=== PATIENT | female | born 1950 | race Caucasian/White ===

== ENCOUNTER → 2020-07-25 | Outpatient (CLI) | payer MEDICARE, BC ==
[2020-07-25 10:34] LABS: ALBUMIN 3.6 g/dL (3.4-5.0); CALCIUM 8.7 mg/dL (8.5-10.1); CREATININE 0.9 mg/dL (0.6-1.0); GFR 62.5; POTASSIUM 4.1 mmol/L (3.5-5.1)
[2020-07-25 10:40] LABS: BASO % 1 % (0-3); EOS # 0.2 x10^3/uL (0.0-0.7); EOS % 3 % (0-3); HEMOGLOBIN 14.3 g/dL (12.0-15.5); LYMPH % 20 % (24-48); MEAN CORPUSCULAR HEMOGLOBIN 34 pg (25-35); MEAN CORPUSCULAR HGB CONC 33 g/dL (31-37); MEAN CORPUSCULAR VOLUME 101 fL (79-100); MONO # 0.4 x10^3/uL (0.0-1.1); MONO % 8 % (0-9); NEUT # 3.5 x10^3/uL (1.8-7.7); NEUT % 68 % (31-73); PLATELET COUNT 186 x10^3/uL (140-400); RED BLOOD COUNT 4.26 x10^6/uL (3.50-5.40); RED CELL DISTRIBUTION WIDTH 13.8 % (11.5-14.5); WHITE BLOOD COUNT 5.1 x10^3/uL (4.0-11.0)
--- NOTE | 2020-07-25 12:46 | EKG ---
[facility] [address] [place] [address] Test Date: 2020-07-25 Test Time: 12:32:19 Pat Name: SHERIF VORA Department: Room: Gender: F [employer]: : 1950 Requested By: ANDRE ABBASI Order Number: [id number] Reading MD: Jason Mtz MD Measurements Intervals [place] Rate: 55 P: 37 WV: 156 QRS: -19 QRSD: 94 T: 41 QT: 450 QTc: 433 Interpretive Statements SINUS RHYTHM Electronically Signed On 07-25-2020 15:49:07 CDT by Jason Mtz MD
--- NOTE | 2020-07-25 13:10 | RAD ---
EXAM: Chest, 2 views. HISTORY: Elevated BMI. Preoperative evaluation. COMPARISON: None. FINDINGS: 2 views of the chest are obtained. There is no infiltrate, pleural fusion or pneumothorax. The heart is normal in size. IMPRESSION: No acute pulmonary finding. Electronically signed by: Lacie Max MD (07/25/2020 1:08 PM) [id number]
[2020-07-26 00:09] LABS: HEMOGLOBIN A1C 5.3 % (4.8-5.6)
== END ==
LOC: SURGPAT 12:25
PROVIDERS: ATTEND Orthopaedic Surgery
DX: Z01.812 Encounter for preprocedural laboratory examination (principal); M17.12 Unilateral primary osteoarthritis, left knee; Z96.652 Presence of left artificial knee joint
CPT/HCPCS: 36415; 71046; 80048; 82040; 82306; 83036; 85025; 85610; 85651; 87641; 93005

== ENCOUNTER 2020-08-15 06:06 | Inpatient (IN) | payer MEDICARE, BC ==
[2020-08-12 08:49] VITALS: BP 109/79
[~2020-08-15] VITALS: Ht 167.6 cm; Wt 92.2 kg
[2020-08-15] VITALS (9 sets, daily range): BP systolic 87–123; BP diastolic 51–77
[~2020-08-15 06:06] MED LIST: ACET325T21 PO; ACETAMINOPHEN 500 MG TABLET PO PRN; CELECOXIB 100 MG CAPSULE. PO PRN; DICL100G54 TP; ESCITALOPRAM OX10 MG PO; FURO40TA4 PO; SOLI10TA2 PO; TRANEXAMIC ACID 1,000 MG in IV NS 50ML -- 1ST BAG INJ ONE; TV=100ml MORPHINE 5 MG, KETOROLAC 30 MG, ROPIVacaine 0.5% PF 60 ML, EPINEPH... INT ART ONE
[2020-08-15] MEDS ORDERED: LIDOCAINE 2% PF 5 ML VIAL. ONE (06:18)
[2020-08-15] MEDS ORDERED: PROPOFOL 10 MG/ML (20ML) VIAL. IV ONE (06:18)
[2020-08-15] MEDS ORDERED: ACET325T21 PO (06:46)
[2020-08-15] MEDS ORDERED: FERR325T14 PO (06:47)
[2020-08-15] MEDS ORDERED: IV RINGERS,LACTATED 1000ML 1,000 ML IV SCH ×2 (07:00→07:30)
[2020-08-15] MEDS ORDERED: TOBRAMYCIN POWDER 1.2 GM VIAL. ONE (07:05)
[2020-08-15] MEDS ORDERED: VANCOMYCIN 1 GM VIAL. ONE ×2 (07:05)
[2020-08-15] MEDS ORDERED: TRANEXAMIC ACID in NS IVPB 100 ML ONE (07:17)
--- NOTE | 2020-08-15 07:24 | PDOC1 ---
History and Physical Date of Admission Date of Admission DATE: 08/15/20 TIME: 07:13 Identification/Chief Complaint Chief Complaint Left knee osteoarthritis pain Source Source: Chart review, Patient History of Present Illness History of Present Illness This 69-year-old woman has left knee osteoarthritis, and has previously tried nonoperative treatment.She describes a progression of knee pain since her last visit that has markedly progressed. Patient believes she's ready for knee replacement given how bad her pain is. She is unable to sleep or sit in her recliner for very long and has been taking Tylenol Arthritis every 2 hours. She is scheduled to have her lap-band removed. History of multiple bilateral superficial blood clots but no DVT. Denies any known metal allergy. Denies smoking. Past Medical History Past Medical History Degenerative joint disease. Bilateral lower extremity vericosities. History of right acromioclavicular tendonitis. Depression with anxiety. Past Surgical History Past Surgical History Hysterectomy 1990 Bladder tuck 1980 section Cholecystectomy Lap Band Past Surgical History: Cholecystectomy, , Hysterectomy Family History Family History Mother: 73 yrs, history of lung cancer, tobaccoism Father: 80 yrs, history of lung cancer, tobaccoism 3 sister(s) - healthy. 1 son(s) , 1 daughter(s) - healthy. Family History: Cancer Social History Smoke: No ALCOHOL: none Current Medications Current Medications Current Medications Celecoxib (CeleBREX) 400 mg 1X PREOP PRN PO PRIOR TO PROCEDURE; Start 08/15/20 at 06:00; Stop 08/15/20 at 15:00 Acetaminophen (Tylenol) 1,000 mg 1X PREOP PRN PO PRIOR TO PROCEDURE Last administered on 08/15/20at 06:54; Start 08/15/20 at 06:00; Stop 08/15/20 at 18:00 Cefazolin Sodium/ Dextrose 50 ml @ 100 mls/hr 1X PREOP PRN IV PRIOR TO PROCEDURE; Start 08/15/20 at 06:00; Stop 08/15/20 at 18:00 Morphine Sulfate 5 mg/Ketorolac Tromethamine 30 mg/Ropivacaine 60 ml/Epinephrine HCl 0.5 mg/Sodium Chloride 100 ml @ 100 mls/hr 1X PERIOP ONCE INT ART ; Start 08/15/20 at 06:00; Stop 08/15/20 at 06:59; Status DC Tranexamic Acid 50 ml @ 50 mls/hr 1X PERIOP ONCE INJ ; Start 08/15/20 at 06:00; Stop 08/15/20 at 06:59; Status DC Tranexamic Acid 50 ml @ 50 mls/hr 1X PERIOP ONCE INJ ; Start 08/15/20 at 08:00; Stop 08/15/20 at 08:59 Propofol (Diprivan) 200 mg STK-MED ONCE IV ; Start 08/15/20 at 06:18; Stop 08/15/20 at 06:18; Status DC Lidocaine HCl (Lidocaine Pf 2% Vial) 5 ml STK-MED ONCE .ROUTE ; Start 08/15/20 at 06:18; Stop 08/15/20 at 06:18; Status DC Ringer's Solution 1,000 ml @ 30 mls/hr Q24H IV Last administered on 08/15/20at 06:54; Start 08/15/20 at 07:00; Stop 08/16/20 at 06:59 Vancomycin HCl (Vancomycin) 1 gm STK-MED ONCE .ROUTE ; Start 08/15/20 at 07:05; Stop 08/15/20 at 07:06; Status DC Tobramycin Sulfate (Tobramycin Powder) 1.2 gm STK-MED ONCE .ROUTE ; Start 08/15/20 at 07:05; Stop 08/15/20 at 07:06; Status DC Vancomycin HCl (Vancomycin) 1 gm STK-MED ONCE .ROUTE ; Start 08/15/20 at 07:05; Stop 08/15/20 at 07:06; Status DC Active Scripts Active Reported Acetaminophen 325 Mg Tablet 650 Mg PO BID Furosemide 40 Mg Tablet 40 Mg PO PRN DAILY PRN Escitalopram Oxalate 10 Mg Tablet 10 Mg PO DAILY Vesicare (Solifenacin Succinate) 10 Mg Tablet 10 Mg PO DAILY Voltaren (Diclofenac Sodium) 100 Gm Gel..gram. 100 Gm TP PRN QID PRN Allergies Allergies: Coded Allergies: No Known Drug Allergies (Unverified , 08/12/20) ROS Review of System CARDIOLOGY: Irregular heart beats no. Dizziness none. Palpitations none. CONSTITUTIONAL: Fever denies. Loss of appetite denies. Fatigue denies. RESPIRATORY: Shortness of breath denies. Chest pain none. Chest congestion none. Cough denies. Wheezing none. Phlegm none. GASTROENTEROLOGY: Positive for Bad acid reflux and heartburn. Physical Exam General: Alert, Cooperative HEENT: Atraumatic Lungs: Normal air movement Heart: RRR Abdomen: Soft Extremities: Other ( The LEFT knee shows a mildly antalgic gait. There is varus alignment. No masses. No detectable effusion. Tenderness on the joint lines. Range of motion is 2-100 degrees. There is crepitus with range of motion, and pain at the extremes of motion. The knee is stable to varus and valgus stress without subluxation or laxity. Muscle strength is slightly weak for the quadrice ps 4-/5 which may be due to pain or avoidance, and does not seem neurogenic, and the muscle tone and bulk is slightly decreased. The hamstring strength is 5/5. The skin is normal with no scars, rashes, lesions or ulcers. Light touch sensation is intact. mild edema and varicose veins. Dorsalis pedis pulse is intact and capillary refill is normal , No knee effusions. No evidence of i nfection at the knee joints. ) Skin: No breakdown, Other (minor lower left leg abrasion and ecchymosis se condary to dog scratch. This area will be completeley covered by impervious stockinette during surgery.) Vitals Vitals Vital Signs Date Time Temp Pulse Resp B/P (MAP) Pulse Ox O2 Delivery O2 Flow Rate FiO2 08/15/20 06:43 97.0 62 18 120/65 97 Room Air 97.0 Images Images Report reviewed and images independently reviewed. Both knees have osteoarthritis. The weightbearing view is positioned opposite from what is traditional which may be why the radiologist said the right knee is worse. The left knee is the worst one based on these radiology films with [id number] contact medially. [address] [address] IMAGING REPORT Signed PATIENT: SHERIF VORA ACCOUNT: [id number] : 1950 LOCATION: [facility] AGE: 67 SEX: F EXAM STATUS: REG CLI ORD. PHYSICIAN: ANDRE ABBASI MD REASON: BILATERAL KNEE PAIN, RT KNEE GIVES OUT, LT KNEE PAINFUL TO BEND PROCEDURE: KNEE BILAT 2V Bilateral knees, 6 views, 07/17/2018: HISTORY: Bilateral knee pain There is joint space narrowing medially on both sides, worse on the right. There is moderate spurring at both knee joints as well as at the patellofemoral articulations. No fracture or subluxation is evident. There is a suggestion of a small right knee joint effusion. IMPRESSION: 1. Moderate degenerative change at both knee joints. 2. No acute bony abnormality is detected. Electronically signed by: Greg Byers MD (07/17/2018 5:21 PM) [facility] VTE Prophylaxis Ordered VTE Prophylaxis Devices: Yes VTE Pharmacological Prophylaxi: Yes Assessment/Plan Assessment/Plan She has painful osteoarthritis of both knees. I do not recommend bilateral knee arthroplasty because of the increased risks of ICU stay and other significant complications. It is much safer to do one knee at a time. The left knee is definitely symptomatic. The x-rays from 07/17/2018 show [id number] contact medially of the left knee. She and I have discussed left total knee arthroplasty in detail including the robotic assistance with CORI. We discussed the potential risks of infection, neurovascular injury, bleeding, blood clots, need for revision surgery, or other potential surgical or anesthetic complications. All of her questions about surgery were answered and she desires to proceed with left total knee arthroplasty with robotic assistance today. She is here today for elective surgery. Justifications for Admission Other Justification ANDRE ABBASI MD Aug 15, 2020 07:24
[2020-08-15] MEDS ORDERED: FAMOTIDINE 20 MG/2 ML VIAL ONE (07:28)
[2020-08-15] MEDS ORDERED: SEVOFLURANE > 120 MINUTES. IH ONE (07:28)
[2020-08-15] MEDS ORDERED: DEXAMETHASONE SOD PHOS 4 MG/ML VIAL ONE (07:28)
[2020-08-15] MEDS ORDERED: ONDANSETRON PF 4 MG/2 ML VIAL. ONE (07:28)
[2020-08-15] MEDS ORDERED: HYDROmorphone 2 MG/ML VIAL IVP PRN (07:30)
[2020-08-15] MEDS ORDERED: MORPHINE SULFATE 2 MG/ML VIAL. IVP PRN ×2 (07:30→09:45)
[2020-08-15] MEDS ORDERED: PROCHLORPERAZINE 10 MG/2 ML VIAL. IVP PRN (07:30)
[2020-08-15] MEDS ORDERED: fentaNYL PF VIAL 100 MCG/2 ML VIAL IVP PRN ×2 (07:30→09:45)
[2020-08-15] MEDS ORDERED: TRANEXAMIC ACID 1,000 MG in IV NS 50ML -- 2ND BAG INJ ONE (08:00)
[2020-08-15] MEDS ORDERED: fentaNYL PF VIAL 100 MCG/2 ML VIAL ONE ×2 (09:17→09:47)
--- NOTE | 2020-08-15 09:42 | PDOC4 ---
Operative Note Operative Note Date of Procedure: August 15, 2020 Pre-Op Diagnosis: Unilateral primary osteoarthritis, left knee. M17.12 Post-Op Diagnosis: same Procedure: left total knee arthroplasty with patella resurfacing, robotic assisted, CPT 94117 Surgeon: Andre Cartagena MD Crown Pouncer: MANA Johnson Anesthesia: General EBL: 100 mL Specimens Obtained: left knee bone and soft tissue Complications: none Drains: pain catheter Tourniquet time: 53 Minutes Tourniquet Pressure: 300 mm Hg Indications for Procedure: Knee arthritis pain, affecting quality of life, unrelieved by nonoperative management Findings: Severe osteoarthritis with bone on bone contact medially with full thickness cartilage loss in the patellofemoral and lateral compartments Implants: Mason & Nephew Journey II Total Knee System, Size 4 left bicruciate stabilized Journey II BCS Oxinium femoral component, size 4 left Journey nonporous tibial baseplate, size 3-4 12 mm left Journey II BCS XLPE articular insert, 32 mm oval Kaitlin II resurfacing patellar component Procedure in Detail: The patient was identified in the preoperative holding area, and the correct left lower extremity was marked by me. The patient was taken to the operating room where the patient was anesthetized by the Department of Anesthesia. Preoperative antibiotics were given intravenously. Tranexamic acid 1 g was given intravenously for intraoperative hemostasis. A "time-out" procedure was performed. The patient was positioned supine on the operative table with a tourniquet on the upper left thigh. A left hip bump and heel bump were attached to the operating table for later intraoperative positioning. The left lower limb was thoroughly scrubbed, then sterile Chloraprep solution was applied, and the limb was draped in sterile fashion. The operating team wore exhaust ventilated hoods with eTutor Personal Protection Toga Zippered Peel-Away protection system. An impervious stockinet and an adhesive drape were used such that the skin was entirely covered. The limb was exsanguinated with an Esmarch bandage, and the tourniquet was inflated. A midline skin incision was made with a scalpel using the patella and tibial tubercle as landmarks. Electrocautery was used for hemostasis. My assistant womens volleyball coach used rake retractors and a laparotomy sponge. A medial parapatellar arthrotomy incision was used with extension into the distal quadriceps tendon. The patella was retracted laterally and Hohmann retractors were now used by my assistant womens volleyball coach. Excess synovium, the menisci, and the cruciate ligaments were resected sharply. A periarticular multimodal ropivacaine anesthetic injection was used in the suprapatellar pouch and distal quadriceps muscle. Several loose bodies were removed from within the joint. There was a prominent anterior lateral joint line cyst which impinged on the patellar tendon and made the patellar tendon slightly thinner than usual. The cyst was excised with a scalpel, and suction. The patella was everted and exposed. The patella thickness was measured with a caliper, and then cut freehand with a saw, using caliper measurements to assess the resection. The lateral retinaculum was partially released from the lateral patella using electrocautery. Rongeurs were used to make sure there were no remaining exposed patellar osteophytes medially or laterally. The patella was sized, and then drilled for an oval three-peg patella component. The tibial tracker array for the CORI system was applied to the tibial crest four finger breadths below the tibial tubercle, using percutaneous incisions and bicortical pins. The femoral tracker array was applied outside of the original incision using two separate stab incisions using bicortical pins. Checkpoint verification pins were applied to the femur and tibia. Using the point probe, the medial and lateral malleoli were localized and the locations were stored. The center of the tibia was noted at the anterior cruciate ligament insertion and stored. The center of the femur was marked at the intersection of Whitesidess line with the transepicondylar axis. The hip center calculation was performed with range of motion of the hip. The femur neutral position was identified, and simulated weightbearing was performed with axial compression on the foot. Range of motion without stress was performed and the data collected. Range of motion with valgus stress, and range of motion with varus stress data collection was also performed. Rotational references include the Whitesidess line, and the trans-epicondylar axis. The femoral articular surface was now mapped in 3 dimensions using the point probe and digital data collected. The tibial condyle articular surfaces and cortical edges were mapped in 3 dimensions using the point probe including the medial and lateral tibial plateau. Implant planning was now performed on-screen with manipulation of the implant sizes, cut thicknesses and gaps, component rotation, component flexion/extension and component varus/valgus until satisfactory ligament balance, alignment and stability of the knee was expected throughout the range of motion. A very minor medial release was required, simply slightly more exposure on the medial side of the tibia and resection of the degenerative meniscal fragments. My assistant womens volleyball coach held a Hohmann retractor, a medial Z-retractor, and an [place] retractor to protect the medial and lateral collateral ligaments, the patellar tendon, the skin and the other soft tissues. The point probe was used to confirm the location of the checkpoint verification pins. The distal femoral surface was now prepared using CORI handpiece for bone removal to the previously planned distal femoral resection. The crosshairs at the pin locations were marked by using a mallet and the point probe for definitive location. A 5-in-1 Journey II cutting guide was then applied and the position was checked with the virtual michael wing from the CORI to ensure proper placement as the pins were applied. The posterior, anterior, and all chamfer cuts were made with the oscillating saw. Excess bone was removed with an osteotome and rongeurs. The tibial cutting guide was applied, positioned using the CORI virtual michael wing, and secured to the upper tibia using three pins at the previously planned location. The virtual michael wing was used to confirm the resection depth, slope and coronal alignment. The upper tibia was cut made with an oscillating saw. My assistant womens volleyball coach held Hohmann retractors and a posterior cruciate ligament retractor to protect the medial and lateral collateral ligaments, the patellar tendon, the skin, the peroneal nerve and the other soft tissues. The upper tibia was sized with a trial baseplate. The posterior compartment was cleared of osteophytes and loose bodies. The periarticular anesthetic injection was used in the posterior compartment. The box cut for a posterior stabilized component was made. A preliminary reduction was performed with a trial femur, trial tibial baseplate and trial polyethylene. The CORI system was used to confirm range of motion, and postoperative stressed gap assessment. The stability was assessed using different thicknesses of tibial articular surface to find satisfactory stability and good range of motion. The rotation of the tibial component was marked on the upper tibia. Final trial reduction was now performed verifying patella tracking and tibiofemoral stability and alignment. The bone pins and tracker arrays were removed, and the checkpoint verification pins were removed. The tibia preparation was completed with a drill, saw, and fin punch at the previously noted rotation. The final implants were verified and opened. Outer gloves were changed by the operating team. Betadine lavage was used. The bone cuts were irrigated with saline using the Katie InterPulse device and then dried with suction and laparotomy sponges. Two packages of Mason + Nephew Rally HV bone cement were mixed in powdered form with Vancomycin 1gm and Tobramycin 1.2 gm, and then vacuum-mixed with the monomer, and placed into a cement gun. The cut surfaces of the bone were thoroughly dried with suction and with laparotomy sponges for cement interdigitation. The final components were cemented into place. The knee was kept at full extension while the cement hardened, and excess cement was removed. Tranexamic acid 1 g was redosed intravenously for additional intraoperative hemostasis. The tourniquet was released, and electrocautery was used for hemostasis. A final periarticular anesthetic injection was used for pain relief. The bone pin sites on the tibial crest were closed with #3-0 Nylon sutures. A final check of [id number] and stability was made, and the polyethylene implant final size was chosen. The polyethylene implant was secured to the tibial baseplate, and the knee was reduced a final time and range of motion and stability was confirmed. Thorough irrigation was used. A pain catheter was inserted. Topical Vancomycin 1 gm was used during the closure. The arthrotomy was closed with interrupted [id number] #1 Vicryl suture. Care was made to close the patellar tendon fascia carefully due to the thin tissue in this region. The subcutaneous tissues were approximated initially with #2-0 Vicryl inverted interrupted sutures by my assistant womens volleyball coach. Next the subcuticular layer was approximated in a running fashion with #3-0 STRATAFIX suture by my assistant womens volleyball coach. The skin incision was then covered and reinforced by my assistant womens volleyball coach with Acticoat, followed by a MAURICIO single use negative pressure wound therapy dressing Soft roll and an Jenaro wrap were applied. Needle and sponge counts were correct. There were no apparent complications. The patient returned to the recovery room in stable condition. Due to the thin patellar tendon tissue I would like to restrict her flexion to 90 degrees for the first 3 weeks after surgery. ANDRE CARTAGENA MD Aug 15, 2020 09:42
[2020-08-15] MEDS ORDERED: diphenhydrAMINE 50 MG/ML VIAL IVP PRN (09:45)
[2020-08-15] MEDS ORDERED: DEXTROSE 50% 25 GM / 50ML DISP.SYRIN. IV PRN (09:45)
[2020-08-15] MEDS ORDERED: PROCHLORPERAZINE 5 MG TABLET. PO PRN (09:45)
[2020-08-15] MEDS: IV NORMAL SALINE 1000ML BAG 1,000 ML IV SCH ×2 (09:45→20:09)
[2020-08-15] MEDS ORDERED: 0.9 % SODIUM CHLORIDE 10 ML DISP.SYRIN. IV PRN (09:45)
[2020-08-15] MEDS ORDERED: METOCLOPRAMIDE HCL 10 MG/2 ML VIAL. IVP PRN (09:45)
[2020-08-15] MEDS ORDERED: ZOLPIDEM 5 MG TABLET. PO PRN (09:45)
[2020-08-15] MEDS ORDERED: CALCIUM CARBONATE 500 MG TAB.CHEW PO PRN (09:45)
[2020-08-15] MEDS: fentaNYL PF VIAL 100 MCG/2 ML VIAL IVP PRN ×2 (09:48→10:00)
[2020-08-15] MEDS ORDERED: PROCHLORPERAZINE 10 MG/2 ML VIAL. ONE (10:02)
--- NOTE | 2020-08-15 10:12 | RAD ---
EXAM: LEFT KNEE, 2 VIEWS. HISTORY: Left knee arthroplasty. COMPARISON: None. FINDINGS: There are changes of tricompartmental arthroplasty in near-anatomic alignment. No fractures are ident ified. Postprocedural gas is noted. IMPRESSION: 1. Left total knee arthroplasty in expected alignment. Electronically signed by: Abena Blanca MD (08/15/2020 10:09 AM) [id number]
--- NOTE | 2020-08-15 10:30 | NUR ---
received from recovery. she is drowsy but answers questions. she has good motion, sensation and pulses bilaterally. dressing to left knee is dry and intact. she does have an IAC. she is rating her pain mild. daughter at bedside
[2020-08-15] MEDS: ONDANSETRON ODT 4 MG TAB.RAPDIS. PO SCH ×2 (12:00→17:50)
[2020-08-15] MEDS: ONDANSETRON PF 4 MG/2 ML VIAL. IVP SCH ×2 (12:08→17:39)
[2020-08-15] MEDS: KETOROLAC 30MG VIAL 30 MG, BUPIVACAINE MPF 0.25% 20 ML, EPINEPHrine 0.5 MG in TOTAL VOL... INT ART SCH (17:32)
[2020-08-15] MEDS ORDERED: ACETAMINOPHEN 325 MG TABLET. PO PRN (18:15)
[2020-08-15] MEDS: ASPIRIN ENTERIC COATED 325 MG TABLET.DR. PO SCH (20:08)
[2020-08-15] MEDS: oxyCODONE/APAP 5/325 1 TAB TABLET PO PRN (20:08)
[2020-08-15] MEDS: OXYBUTYNIN CHLORIDE 5 MG TABLET PO SCH (21:54)
[2020-08-16 03:33] VITALS: BP 117/80
[2020-08-16] MEDS: oxyCODONE/APAP 5/325 1 TAB TABLET PO PRN ×5 (04:40→21:13)
[2020-08-16 04:53] LABS: CALCIUM 8.7 mg/dL (8.5-10.1); CREATININE 0.9 mg/dL (0.6-1.0); GFR 62.5; POTASSIUM 4.6 mmol/L (3.5-5.1)
[2020-08-16] MEDS: KETOROLAC 30MG VIAL 30 MG, BUPIVACAINE MPF 0.25% 20 ML, EPINEPHrine 0.5 MG in TOTAL VOL... INT ART SCH (05:44)
[2020-08-16] MEDS ORDERED: MAGNESIUM HYDROXIDE 2,400 MG/30 ML ORAL.SUSP. PO PRN (06:00)
[2020-08-16] MEDS: ONDANSETRON ODT 4 MG TAB.RAPDIS. PO SCH ×2 (06:00)
[2020-08-16] MEDS: ONDANSETRON PF 4 MG/2 ML VIAL. IVP SCH ×2 (06:00)
[2020-08-16 06:33] VITALS: BP 111/78
[2020-08-16] MEDS: CITALOPRAM 20 MG TABLET. PO SCH (07:55)
[2020-08-16] MEDS: MULTIVITAMIN with MINERAL TABLET. PO SCH (07:55)
[2020-08-16] MEDS: SENNOSIDES/DOCUSATE 8.6/50MG TABLET. PO SCH (07:55)
[2020-08-16] MEDS: CELECOXIB 100 MG CAPSULE. PO SCH (07:56)
[2020-08-16] MEDS: OXYBUTYNIN CHLORIDE 5 MG TABLET PO SCH ×3 (07:56→20:06)
[2020-08-16] MEDS: ASPIRIN ENTERIC COATED 325 MG TABLET.DR. PO SCH ×2 (07:56→20:06)
[2020-08-16] MEDS: FUROSEMIDE 40 MG TABLET. PO SCH (09:00)
[2020-08-16] MEDS ORDERED: ONDANSETRON PF 4 MG/2 ML VIAL. IVP PRN (12:00)
[2020-08-16] MEDS ORDERED: ONDANSETRON ODT 4 MG TAB.RAPDIS. PO PRN (12:00)
--- NOTE | 2020-08-16 13:00 | PDOC ---
PROGRESS NOTES Date of Service DATE: 08/16/20 TIME: 12:57 Subjective Subjective Doing well. Not yet safe ambulation with walker. Objective Vital Signs Vital Signs Date Time Temp Pulse Resp B/P (MAP) Pulse Ox O2 Delivery O2 Flow Rate FiO2 08/16/20 09:47 94 Room Air 08/16/20 06:33 97.8 69 18 111/78 (89) 97.8 08/15/20 09:31 8 Physical Exam MAURICIO dressing removed due to bleeding. Distal incision appears that the Stratafix Monocryl stitch didn't hold, and has a 1 cm gap with bleeding at the skin and subq. This area was reapproximated with Mastisol and a Steri Strip (and two additional steri strips around the main one to reinforce). Pain catheter has been removed. Calf soft and NT. Homans neg. Able to DF and planta rflex foot with no evidence of neurovascular injury nor compartment syndrome. No blisters. Minimal erythema. Moderate swelling as expected. Labs Laboratory Tests Test 08/16/20 04:10 Sodium Level 145 mmol/L (136-145) Potassium Level 4.6 mmol/L (3.5-5.1) Chloride Level 108 mmol/L (98-107) Carbon Dioxide Level 31 mmol/L (21-32) Anion Gap 6 (6-14) Blood Urea Nitrogen 16 mg/dL (7-20) Creatinine 0.9 mg/dL (0.6-1.0) Estimated GFR (Cockcroft-Gault) 62.5 Glucose Level 111 mg/dL (70-99) Calcium Level 8.7 mg/dL (8.5-10.1) Laboratory Tests Test 08/16/20 04:10 Sodium Level 145 mmol/L (136-145) Potassium Level 4.6 mmol/L (3.5-5.1) Chloride Level 108 mmol/L (98-107) Carbon Dioxide Level 31 mmol/L (21-32) Anion Gap 6 (6-14) Blood Urea Nitrogen 16 mg/dL (7-20) Creatinine 0.9 mg/dL (0.6-1.0) Estimated GFR (Cockcroft-Gault) 62.5 Glucose Level 111 mg/dL (70-99) Calcium Level 8.7 mg/dL (8.5-10.1) Imaging Postop x-rays and report reviewed by me. Satisfactory TKA without apparent complications. [facility] [address] [place], [place] [id number] IMAGING REPORT Signed PATIENT: SHERIF VORA ACCOUNT: [id number] : 1950 LOCATION: [facility] AGE: 69 SEX: F EXAM STATUS: ADM IN ORD. PHYSICIAN: ANDRE ABBASI MD REASON: POST OP PROCEDURE: KNEE LEFT 2V EXAM: LEFT KNEE, 2 VIEWS. HISTORY: Left knee arthroplasty. COMPARISON: None. FINDINGS: There are changes of tricompartmental arthroplasty in near-anatomic alignment. No fractures are identified. Postprocedural gas is noted. IMPRESSION: 1. Left total knee arthroplasty in expected alignment. Electronically signed by: Abena Blanca MD (08/15/2020 10:09 AM) [id number] Assessment Assessment POD 1 after TKA Plan Plan of Care Needs to stay in hospital for safe walker use prior to discharge. Continue DVT prophylaxis and PT. Discharge planning. Justicifation of Admission Dx: Justifications for Admission: Justification of Admission Dx: Yes ADNRE ABBASI MD Aug 16, 2020 13:00
[2020-08-16] MEDS ORDERED: BISACODYL 10 MG SUPP.RECT. PR PRN (16:00)
[2020-08-16 18:00] VITALS: BP 103/58
[2020-08-17 06:30] VITALS: BP 108/58
[2020-08-17 07:45] LABS: HEMATOCRIT 34.5 % (36.0-47.0); HEMOGLOBIN 11.5 g/dL (12.0-15.5)
[2020-08-17] MEDS: ASPIRIN ENTERIC COATED 325 MG TABLET.DR. PO SCH (08:12)
[2020-08-17] MEDS: SENNOSIDES/DOCUSATE 8.6/50MG TABLET. PO SCH (08:12)
[2020-08-17] MEDS: MULTIVITAMIN with MINERAL TABLET. PO SCH (08:12)
[2020-08-17] MEDS: CITALOPRAM 20 MG TABLET. PO SCH (08:13)
[2020-08-17] MEDS: CELECOXIB 100 MG CAPSULE. PO SCH (08:13)
[2020-08-17] MEDS: OXYBUTYNIN CHLORIDE 5 MG TABLET PO SCH ×2 (08:13→16:15)
[2020-08-17 08:21] VITALS: BP 93/58
[2020-08-17] MEDS: FUROSEMIDE 40 MG TABLET. PO SCH (08:21)
[2020-08-17] MEDS: IV NORMAL SALINE 1000ML BAG 1,000 ML IV SCH (09:45)
[2020-08-17] MEDS: oxyCODONE/APAP 5/325 1 TAB TABLET PO PRN ×2 (11:35→16:17)
[2020-08-17 15:23] VITALS: BP 100/61
[2020-08-17 17:01] VITALS: BP 103/51
--- NOTE | 2020-08-17 17:07 | PDOC ---
PROGRESS NOTES Date of Service DATE: 08/17/20 TIME: 17:05 Subjective Subjective Doing well. Planning for discharge today. Objective Vital Signs Vital Signs Date Time Temp Pulse Resp B/P (MAP) Pulse Ox O2 Delivery O2 Flow Rate FiO2 08/17/20 17:01 98.3 56 18 103/51 (68) 95 Room Air 98.3 08/15/20 09:31 8 Physical Exam MAURICIO dressing changed. Incision benign. Labs Laboratory Tests Test 08/16/20 04:10 08/17/20 06:15 Sodium Level 145 mmol/L (136-145) Potassium Level 4.6 mmol/L (3.5-5.1) Chloride Level 108 mmol/L (98-107) Carbon Dioxide Level 31 mmol/L (21-32) Anion Gap 6 (6-14) Blood Urea Nitrogen 16 mg/dL (7-20) Creatinine 0.9 mg/dL (0.6-1.0) Estimated GFR (Cockcroft-Gault) 62.5 Glucose Level 111 mg/dL (70-99) Calcium Level 8.7 mg/dL (8.5-10.1) Hemoglobin 11.5 g/dL (12.0-15.5) Hematocrit 34.5 % (36.0-47.0) Mean Corpuscular Hemoglobin Concent 33 g/dL (31-37) Laboratory Tests Test 08/17/20 06:15 Hemoglobin 11.5 g/dL (12.0-15.5) Hematocrit 34.5 % (36.0-47.0) Mean Corpuscular Hemoglobin Concent 33 g/dL (31-37) Assessment Assessment POD #2 after TKA Plan Plan of Detention today. Oral pain meds. Aspirin BID for DVT prophylaxis. Follow up with my office next week. Home Health PT. Justicifation of Admission Dx: Justifications for Admission: Justification of Admission Dx: Yes ANDRE ABBASI MD Aug 17, 2020 17:07
--- NOTE | 2020-08-17 17:08 | SNU/HH DC ---
DISCHARGE WITH HOME HEALTH DISCHARGE INFORMATION: Discharge Date: Aug 17, 2020 Final Diagnosis: Aftercare after left total knee arthroplasty Condition on Discharge: Stable HOME HEALTH: Face to Face: I certify this patient is under my care and that I, or a nurse practitioner or physician's respiratory care assistant working with me, had a face to face encounter that meets the physician face to face encounter requirements with this patient on 08/17/2020 Medical Complications: S/P Joint Replacement RN For Eval/Treatment: No Physical Therapy For: Evalulation/Treatment Occupational Therapy For: Evaluation/Treatment Pt Meets Homebound Status: Unsteady balance w/ amb,, Limited distance walking POST DISCHARGE ORDERS: Activity Instructions for Disc: Activity as tolerated Weight Bearing Status after Di: Full weight bearing Bathing Instructions: Shower-keep dressing dry, No Tub Bath until see Wound/Incision Care: Ice to area for comfort, Keep wound elevated, Do not change dressing FOLLOW-UP: Follow Up With: Dr. Cartagnea in 1 week [phone] TREATMENT/EQUIPMENT ORDERS: Adaptive Equipment Issued: None CERTIFICATION STATEMENT: Certification Statement: Certification Statement: Based on the above finding, I certify that this patient is confined to the home and needs intermittent jail care, physical therapy and/or speech therapy, or continues to need occupational therapy.~ This patient is under my care, and I have initiated the establishment of the plan of care.~ This patient will be followed by myself or a community physician who will periodically review the plan of care. Home Meds Reported Medications Ferrous Sulfate (FERROUS SULFATE) 325 Mg Tablet, 1 TAB PO DAILY for anemia, #30 TAB 3 Refills 08/15/20 Acetaminophen (ACETAMINOPHEN) 325 Mg Tablet, 650 MG PO BID for pain, TAB 08/15/20 Furosemide (FUROSEMIDE) 40 Mg Tablet, 40 MG PO PRN DAILY PRN for SWELLING, TAB 08/12/20 Escitalopram Oxalate (ESCITALOPRAM OXALATE) 10 Mg Tablet, 10 MG PO DAILY for ANTI-DEPRESSANT, #30 TAB 0 Refills 08/12/20 Solifenacin Succinate (VESICARE) 10 Mg Tablet, 10 MG PO DAILY for BLADDER CONTROL, TAB 08/12/20 Diclofenac Sodium (VOLTAREN) 100 Gm Gel..gram., 100 GM TP PRN QID PRN for PAIN CONTROL, EACH 08/12/20 ANDRE CARTAGENA MD Aug 17, 2020 17:08
[2020-08-17] MEDS ORDERED: OXYC-325 PO (17:42)
--- NOTE | 2020-08-17 18:05 | NUR ---
Discharge instructions given and prescription sent via electronic to pharmacy. Answered questions and concerns. Both pt and daughter verbalized understanding. Pt discharged home with home health. Escorted out by w/c.
--- NOTE | 2020-08-18 09:09 | PATHOLOGY ---
[facility] Accession Number: [id number] . 01 Material submitted: . knee - LEFT KNEE BONE AND TISSUE. Modifiers: left . 01 Clinical history: . LEFT TKA . 02 Diagnosis: Segments of bone, articular cartilage, and focal attached soft tissue, left total knee arthroplasty: - Advanced degenerative arthritis. (JPM:mike; 08/17/2020) MBR 08/17/2020 1647 Local . 02 Electronically signed: . Sotero Mitchell MD, Pathologist NPI- [id number] . 01 Gross description: . Received in formalin labeled "Jacqueline Toro, left knee bone and tissue" are multiple fragments of romero-white bone and attached scant yellow-romero soft tissue measuring in aggregate 14.1 x 13.5 x 3.0 cm. The bone displays multiple cartilage covered articular surfaces displaying roughening and eburnation over 90% of the surfaces. The remaining surfaces display smooth bone margins are grossly consistent with surgical margins. Meniscus is not identified. A field service representative section of the specimen is submitted in cassette A1 following decalcification. ([facility] [place]; 08/16/2020) [facility] 08/16/2020 1828 Local . 02 Pathologist provided ICD-10: M17.12 . 02 CPT . 445755, [id number] Specimen Comment: A courtesy copy of this report has been sent to [phone], [phone] Specimen Comment: [id number] Specimen Comment: Report sent to / DR SOARES Performed at: 01 [facility] [address], [place], [place] [id number] MD Dipak Faye MD Phone: [phone] Performed at: 02 [facility] [address] [place], [place] [id number] MD Sotero Mitchell MD Phone: [phone]
== END 2020-08-17 18:05 | disposition home health service (06) | DRG 470 ==
LOC: OPSVCIP 06:06 → INTOOBSV 06:06 → 4 SOUTHEST 10:44 → OBSVTOIN 08-16 15:13
PROVIDERS: ADMIT Orthopaedic Surgery; ATTEND Orthopaedic Surgery
PROC: 8E0Y0CZ Robotic Assisted Procedure of Lower Extremity, Open Approach (ICD-10-PCS; 2020-08-15)
PROC: 0SRD069 Replacement of Left Knee Joint with Oxidized Zirconium on Polyethylene Synthetic Substitute, Cemented, Open Approach (ICD-10-PCS; principal; 2020-08-15 07:10)
DX: M17.12 Unilateral primary osteoarthritis, left knee (principal); Z90.710 Acquired absence of both cervix and uterus; F41.8 Other specified anxiety disorders; Z90.49 Acquired absence of other specified parts of digestive tract; Z80.1 Family history of malignant neoplasm of trachea, bronchus and lung
CPT/HCPCS: 36415; 73560; 80048; 85014; 85018; 86850; 86900; 86901; 88305; 88311; A4213; A4628; A4930; A6253; A6258; A6450; C1713; C1755; C1776; G0378; G0379; J0171; J0690; J0780; J1100; J1885; J2270; J2405; J2704; J2795; J3010; J3260; J3370; J3490; J7030; J7120; 97116-GP; 97150-GP; 97530-GP; 97535-GO

== ENCOUNTER 2020-10-04 10:07 | Inpatient (IN) | payer MEDICARE, BC ==
[~2020-10-04] VITALS: Ht 167.6 cm; Wt 94.5 kg
[~2020-10-04 10:07] MED LIST changes: +CELE200C PO; -CELECOXIB 100 MG CAPSULE. PO PRN; +FERR325T14 PO; +GABAPENTIN 300 MG CAPSULE. PO PRN; +IV RINGERS,LACTATED 1000ML 1,000 ML IV SCH; +OXYC-325 PO; +PROCHLORPERAZINE 10 MG/2 ML VIAL. IVP PRN; -TRANEXAMIC ACID 1,000 MG in IV NS 50ML -- 1ST BAG INJ ONE; -TV=100ml MORPHINE 5 MG, KETOROLAC 30 MG, ROPIVacaine 0.5% PF 60 ML, EPINEPH... INT ART ONE; +fentaNYL PF VIAL 100 MCG/2 ML VIAL IVP PRN
[2020-10-04 10:16] VITALS: BP 113/74
[2020-10-04] MEDS ORDERED: TRANEXAMIC ACID in NS IVPB 50 ML ONE (12:25)
[2020-10-04] MEDS ORDERED: TRANEXAMIC ACID in NS IVPB 0 ML ONE (12:25)
[2020-10-04] MEDS ORDERED: fentaNYL PF VIAL 100 MCG/2 ML VIAL ONE ×2 (12:28→14:09)
[2020-10-04] MEDS ORDERED: MIDAZOLAM HCL/PF 2 MG/2 ML VIAL. ONE (12:28)
[2020-10-04] MEDS ORDERED: PROPOFOL 10 MG/ML (20ML) VIAL. IV ONE (12:29)
[2020-10-04] MEDS ORDERED: LIDOCAINE 2% PF 5 ML VIAL. ONE (12:29)
[2020-10-04] MEDS ORDERED: DEXAMETHASONE SOD PHOS 4 MG/ML VIAL ONE (12:30)
[2020-10-04] MEDS ORDERED: 0.9 % SODIUM CHLORIDE 20 ML VIAL. IJ ONE (12:30)
[2020-10-04] MEDS ORDERED: ONDANSETRON PF 4 MG/2 ML VIAL. ONE (12:30)
[2020-10-04] MEDS ORDERED: PHENYLEPHRINE 10 MG/ML VIAL. ONE (12:30)
[2020-10-04] MEDS ORDERED: VANCOMYCIN 1 GM VIAL. ONE (13:09)
[2020-10-04] MEDS ORDERED: PROCHLORPERAZINE 10 MG/2 ML VIAL. ONE (14:09)
[2020-10-04] MEDS: fentaNYL PF VIAL 100 MCG/2 ML VIAL IVP PRN ×2 (14:18→14:32)
[2020-10-04] MEDS ORDERED: MORPHINE SULFATE 2 MG/ML INJ. ONE (14:40)
[2020-10-04] MEDS: MORPHINE SULFATE 2 MG/ML INJ. IVP PRN ×2 (14:44→14:56)
[2020-10-04] MEDS ORDERED: diphenhydrAMINE 50 MG/ML VIAL IVP PRN (15:30)
[2020-10-04] MEDS ORDERED: PROCHLORPERAZINE 5 MG TABLET. PO PRN (15:30)
[2020-10-04] MEDS ORDERED: DEXTROSE 50% 25 GM / 50ML DISP.SYRIN. IV PRN (15:30)
[2020-10-04] MEDS ORDERED: 0.9 % SODIUM CHLORIDE 10 ML DISP.SYRIN. IV PRN (15:30)
[2020-10-04] MEDS ORDERED: CALCIUM CARBONATE 500 MG TAB.CHEW PO PRN (15:30)
[2020-10-04] MEDS ORDERED: MORPHINE SULFATE 2 MG/ML INJ. IVP PRN (15:30)
[2020-10-04] MEDS ORDERED: fentaNYL PF VIAL 100 MCG/2 ML VIAL IVP PRN (15:30)
[2020-10-04] MEDS ORDERED: HYDROmorphone 2 MG/ML VIAL ONE (15:41)
[2020-10-04] MEDS: HYDROmorphone 2 MG/ML VIAL IVP PRN ×2 (15:44→15:54)
[2020-10-04 15:53] LABS: BF CLARITY TURBID; BF COLOR RED; BF MON % 62 %; BF PMN % 38 %; BF RBC COUNT 120000 /cmm (Not Established); BF SOURCE SYNOVIAL; BF WBC COUNT 90 /cmm (Not Established)
--- NOTE | 2020-10-04 15:57 | PDOC4 ---
Operative Note Operative Note Date of surgery: 10/04/2020 Preoperative diagnosis: Wound drainage left knee with history of left total knee arthroplasty 6 weeks ago Postoperative diagnosis: Same with apparent joint communication Operative procedure: Irrigation debridement of left knee joint with polyethylene exchange of the left total knee arthroplasty Surgeon: Rossy Assist: Jared kelley assist Anesthesia: General Estimated blood loss: 25 cc Complications: None Specimens: Joint fluid white cell count and cultures, 2 separate sets of deep cultures from around the femoral implant and also from periphery of the tibial implant Operative indications: Please see my dictated preoperative history and physical for detailed operative indications and note that we had reviewed preoperatively risks benefits postoperative course of the surgery including the rationale for exploration of the wound. If it is just seem to be superficial it may just involve closure however if there appears to be deep communication into the joint I would intend to open up the joint and clean the entire area thoroughly as well as do a polyethylene exchange as a backup plan. If the more extensive surgery is done, she would stay in the hospital for potential evaluation and antibiotics. All her questions were answered she agrees to proceed with surgical evaluation and treatment Operative text: Patient was identified procedure verified patient placed in the supine position on the operating table. After adequate amounts of general anesthesia were administered the right lower extremity was prepped and draped in standard sterile fashion with a thigh tourniquet and after timeout was performed patient procedure identified and verified the tourniquet inflated to 300 mmHg without exsanguination and a midline incision was made. Initially it had appeared that perhaps there was only superficial involvement above the fascia however on probing the medial parapatellar area there was a soft area where fluid was readily expressed and a medial parapatellar approach was then carried out. Joint fluid was collected for white blood cell analysis as well as aerobic anaerobic Gram stain. Deep tissue was then obtained from the periphery of the femoral and tibial components and sent for separate cultures. The sinus tract areas through the skin and subcutaneous tissue as well as through the medial retinaculum were both excised sharply with a scalpel to healthy tissue, polyethylene was removed and thorough irrigation was carried out with bactisure followed by another 2 L of normal saline solution. Any devitalized tissue had been verified to be removed. The joint was irrigated with dilute Betadine solution followed by additional normal saline solution 1 g vancomycin was placed in the joint and retinaculum was closed with strata fix PDS suture #1 in a running fashion. Excellent watertight closure was accomplished. Subcutaneous closure with buried PDS suture and skin closure with marie. A manuelito dressing was placed. Toes were noted to be warm pink following deflation of the tourniquet patient was returned to recovery room in stable condition having tolerated procedure well. Jared handy was present for the procedure and assisted in patient positioning prepping draping retraction closure dressings. MONSERRAT SULLIVAN MD Oct 04, 2020 15:57
--- NOTE | 2020-10-04 16:06 | RAD ---
EXAM: Left knee, 2 views. HISTORY: Arthroplasty. COMPARISON: Is a 2020. FINDINGS: 2 views of the left knee are obtained. There is a left knee arthroplasty in expected positi on. There is subcutaneous gas, joint fluid and there are skin marie due to recent surgery. IMPRESSION: Left knee arthroplasty in expected position. There is surrounding soft tissue changes due to recent surgery. Electronically signed by: Lacie Max MD (10/04/2020 4:03 PM) [id number]
[2020-10-04] MEDS ORDERED: PIP/TAZO PER PHARMACY MC PRN (16:45)
[2020-10-04] MEDS: FERROUS SULFATE 325 MG TABLET. PO SCH (17:00)
[2020-10-04] MEDS: ONDANSETRON ODT 4 MG TAB.RAPDIS. PO SCH (18:00)
[2020-10-04] MEDS: ONDANSETRON PF 4 MG/2 ML VIAL. IVP SCH (18:00)
[2020-10-04] MEDS: PIPERACILLIN/TAZOBACTAM 3.375 GM in IV NORMAL SALINE 50ML 50 ML IV SCH (18:42)
[2020-10-04] MEDS: IV NORMAL SALINE 1000ML BAG 1,000 ML IV SCH (18:42)
[2020-10-04] MEDS: oxyCODONE IR 5 MG TABLET PO PRN (18:45)
[2020-10-04 19:00] VITALS: BP 151/103
[2020-10-04 19:23] LABS: BASO % 0 % (0-3); EOS % 0 % (0-3); HEMATOCRIT 39.4 % (36.0-47.0); HEMOGLOBIN 13.1 g/dL (12.0-15.5); LYMPH # 0.3 x10^3/uL (1.0-4.8); LYMPH % 5 % (24-48); MEAN CORPUSCULAR HEMOGLOBIN 34 pg (25-35); MEAN CORPUSCULAR HGB CONC 33 g/dL (31-37); MEAN CORPUSCULAR VOLUME 102 fL (79-100); MONO # 0.1 x10^3/uL (0.0-1.1); MONO % 2 % (0-9); NEUT # 6.2 x10^3/uL (1.8-7.7); NEUT % 93 % (31-73); PLATELET COUNT 180 x10^3/uL (140-400); RED BLOOD COUNT 3.88 x10^6/uL (3.50-5.40); RED CELL DISTRIBUTION WIDTH 13.2 % (11.5-14.5); WHITE BLOOD COUNT 6.7 x10^3/uL (4.0-11.0)
[2020-10-04 19:42] LABS: ALBUMIN 3.4 g/dL (3.4-5.0); ALBUMIN/GLOBULIN RATIO 1.1 (1.0-1.7); C-REACTIVE PROTEIN 1.2 mg/L (0-3.3); CALCIUM 8.7 mg/dL (8.5-10.1); CREATININE 0.9 mg/dL (0.6-1.0); GFR 62.3; POTASSIUM 5.2 mmol/L (3.5-5.1); TOTAL BILIRUBIN 0.3 mg/dL (0.2-1.0); TOTAL PROTEIN 6.5 g/dL (6.4-8.2)
[2020-10-04 19:58] LABS: % BANDS 1 % (0-9); % LYMPHS 6 % (24-48); % SEGS 93 % (35-66); PLT ESTIMATE ADEQUATE (ADEQUATE)
[2020-10-05] MEDS ORDERED: VANCOMYCIN 1 GM in IV NORMAL SALINE 250ML 250 ML IV ONE (01:00)
[2020-10-05] MEDS: ONDANSETRON PF 4 MG/2 ML VIAL. IVP SCH ×3 (06:00→12:00)
[2020-10-05] MEDS: ONDANSETRON ODT 4 MG TAB.RAPDIS. PO SCH ×3 (06:00→12:00)
[2020-10-05] MEDS ORDERED: MAGNESIUM HYDROXIDE 2,400 MG/30 ML ORAL.SUSP. PO PRN (06:00)
[2020-10-05] MEDS: PIPERACILLIN/TAZOBACTAM 3.375 GM in IV NORMAL SALINE 50ML 50 ML IV SCH ×4 (06:08→18:18)
[2020-10-05] MEDS: GABAPENTIN 100 MG CAPSULE. PO SCH ×3 (06:09→20:06)
[2020-10-05] MEDS: traMADol 50 MG TABLET PO SCH ×3 (06:09→16:51)
[2020-10-05 07:00] VITALS: BP 101/61
[2020-10-05] MEDS: MULTIVITAMIN with MINERAL TABLET. PO SCH (08:33)
[2020-10-05] MEDS: oxyCODONE IR 5 MG TABLET PO PRN ×4 (08:33→21:37)
[2020-10-05] MEDS: ACETAMINOPHEN 500 MG TABLET PO SCH ×3 (08:33→20:06)
[2020-10-05] MEDS: SENNOSIDES/DOCUSATE 8.6/50MG TABLET. PO SCH (08:33)
[2020-10-05] MEDS: FERROUS SULFATE 325 MG TABLET. PO SCH ×2 (08:33→16:48)
--- NOTE | 2020-10-05 08:33 | PDOC ---
PROGRESS NOTES Date of Service DATE: 10/05/20 TIME: 08:29 Subjective Subjective Problems overnight: Doing well, pain well controlled got up yesterday to go to the bathroom with minimal assistance Objective Vital Signs Vital Signs Date Time Temp Pulse Resp B/P (MAP) Pulse Ox O2 Delivery O2 Flow Rate FiO2 10/05/20 07:00 98.0 62 17 101/61 (74) 99 Room Air 98.0 10/05/20 06:55 1.0 Physical Exam On exam manuelito dressing is intact has some mild swelling distal neurovascular status intact Labs Laboratory Tests Test 10/04/20 13:13 10/04/20 18:40 Body Fluid Source Synovial Body Fluid Color Red Body Fluid Clarity Turbid Body Fluid Nucleated Cells 90 /cmm (Not Established) Body Fluid Mononuclear WBCs (%) 62 % Body Fluid Polymorphonuclear Cells 38 % Body Fluid Total RBCs Counted 292227 /cmm (Not White Blood Count 6.7 x10^3/uL (4.0-11.0) Red Blood Count 3.88 x10^6/uL (3.50-5.40) Hemoglobin 13.1 g/dL (12.0-15.5) Hematocrit 39.4 % (36.0-47.0) Mean Corpuscular Volume 102 fL (79-100) Mean Corpuscular Hemoglobin 34 pg (25-35) Mean Corpuscular Hemoglobin Concent 33 g/dL (31-37) Red Cell Distribution Width 13.2 % (11.5-14.5) Platelet Count 180 x10^3/uL (140-400) Neutrophils (%) (Auto) 93 % (31-73) Lymphocytes (%) (Auto) 5 % (24-48) Monocytes (%) (Auto) 2 % (0-9) Eosinophils (%) (Auto) 0 % (0-3) Basophils (%) (Auto) 0 % (0-3) Neutrophils # (Auto) 6.2 x10^3/uL (1.8-7.7) Lymphocytes # (Auto) 0.3 x10^3/uL (1.0-4.8) Monocytes # (Auto) 0.1 x10^3/uL (0.0-1.1) Eosinophils # (Auto) 0.0 x10^3/uL (0.0-0.7) Basophils # (Auto) 0.0 x10^3/uL (0.0-0.2) Segmented Neutrophils % 93 % (35-66) Band Neutrophils % 1 % (0-9) Lymphocytes % 6 % (24-48) Platelet Estimate Adequate (ADEQUATE) Erythrocyte Sedimentation Rate 6 (0-25) Sodium Level 139 mmol/L (136-145) Potassium Level 5.2 mmol/L (3.5-5.1) Chloride Level 104 mmol/L (98-107) Carbon Dioxide Level 28 mmol/L (21-32) Anion Gap 7 (6-14) Blood Urea Nitrogen 16 mg/dL (7-20) Creatinine 0.9 mg/dL (0.6-1.0) Estimated GFR (Cockcroft-Gault) 62.3 BUN/Creatinine Ratio 18 (6-20) Glucose Level 126 mg/dL (70-99) Calcium Level 8.7 mg/dL (8.5-10.1) Total Bilirubin 0.3 mg/dL (0.2-1.0) Aspartate Amino Transf (AST/SGOT) 18 U/L (15-37) Alanine Aminotransferase (ALT/SGPT) 17 U/L (14-59) Alkaline Phosphatase 82 U/L (46-116) C-Reactive Protein, Quantitative 1.2 mg/L (0-3.3) Total Protein 6.5 g/dL (6.4-8.2) Albumin 3.4 g/dL (3.4-5.0) Albumin/Globulin Ratio 1.1 (1.0-1.7) Laboratory Tests Test 10/04/20 13:13 10/04/20 18:40 Body Fluid Source Synovial Body Fluid Color Red Body Fluid Clarity Turbid Body Fluid Nucleated Cells 90 /cmm (Not Established) Body Fluid Mononuclear WBCs (%) 62 % Body Fluid Polymorphonuclear Cells 38 % Body Fluid Total RBCs Counted 463800 /cmm (Not White Blood Count 6.7 x10^3/uL (4.0-11.0) Red Blood Count 3.88 x10^6/uL (3.50-5.40) Hemoglobin 13.1 g/dL (12.0-15.5) Hematocrit 39.4 % (36.0-47.0) Mean Corpuscular Volume 102 fL (79-100) Mean Corpuscular Hemoglobin 34 pg (25-35) Mean Corpuscular Hemoglobin Concent 33 g/dL (31-37) Red Cell Distribution Width 13.2 % (11.5-14.5) Platelet Count 180 x10^3/uL (140-400) Neutrophils (%) (Auto) 93 % (31-73) Lymphocytes (%) (Auto) 5 % (24-48) Monocytes (%) (Auto) 2 % (0-9) Eosinophils (%) (Auto) 0 % (0-3) Basophils (%) (Auto) 0 % (0-3) Neutrophils # (Auto) 6.2 x10^3/uL (1.8-7.7) Lymphocytes # (Auto) 0.3 x10^3/uL (1.0-4.8) Monocytes # (Auto) 0.1 x10^3/uL (0.0-1.1) Eosinophils # (Auto) 0.0 x10^3/uL (0.0-0.7) Basophils # (Auto) 0.0 x10^3/uL (0.0-0.2) Segmented Neutrophils % 93 % (35-66) Band Neutrophils % 1 % (0-9) Lymphocytes % 6 % (24-48) Platelet Estimate Adequate (ADEQUATE) Erythrocyte Sedimentation Rate 6 (0-25) Sodium Level 139 mmol/L (136-145) Potassium Level 5.2 mmol/L (3.5-5.1) Chloride Level 104 mmol/L (98-107) Carbon Dioxide Level 28 mmol/L (21-32) Anion Gap 7 (6-14) Blood Urea Nitrogen 16 mg/dL (7-20) Creatinine 0.9 mg/dL (0.6-1.0) Estimated GFR (Cockcroft-Gault) 62.3 BUN/Creatinine Ratio 18 (6-20) Glucose Level 126 mg/dL (70-99) Calcium Level 8.7 mg/dL (8.5-10.1) Total Bilirubin 0.3 mg/dL (0.2-1.0) Aspartate Amino Transf (AST/SGOT) 18 U/L (15-37) Alanine Aminotransferase (ALT/SGPT) 17 U/L (14-59) Alkaline Phosphatase 82 U/L (46-116) C-Reactive Protein, Quantitative 1.2 mg/L (0-3.3) Total Protein 6.5 g/dL (6.4-8.2) Albumin 3.4 g/dL (3.4-5.0) Albumin/Globulin Ratio 1.1 (1.0-1.7) Assessment Assessment POD#1 irrigation debridement with polyethylene exchange total knee Plan Plan of Care I went over with her that generally the labs showed good results and no signs of severe concern for infection. We did discuss that cultures may be unreliable somewhat due to being on preoperative antibiotics Continue mobilize full weightbearing limit knee flexion to about 90 degrees Appreciate ID consult, will likely treat aggressively with IV antibiotics due to the concern for potential communication, patient verbalized understanding of the treatment plan and the rationale We will proceed with central line and antibiotics plan, plan outpatient physical therapy at [facility] on discharge Justicifation of Admission Dx: Justifications for Admission: Justification of Admission Dx: Yes Comments: Pending cultures of irrigation debridement, need arrangement of IV antibiotics per infectious disease recommendations MONSERRAT SULLIVAN MD Oct 05, 2020 08:33
[2020-10-05] MEDS: CITALOPRAM 20 MG TABLET. PO SCH (09:22)
[2020-10-05] MEDS: OXYBUTYNIN CHLORIDE 5 MG TABLET PO SCH ×3 (09:22→20:05)
[2020-10-05] MEDS: CELECOXIB 100 MG CAPSULE. PO SCH (09:22)
[2020-10-05 11:00] VITALS: BP 102/59
--- NOTE | 2020-10-05 11:47 | CONS ---
DATE OF CONSULTATION: 10/05/2020 REFERRING PHYSICIAN: Dr. Blair. REASON FOR CONSULTATION: Antibiotic management. HISTORY OF PRESENT ILLNESS: A 70-year-old female with history of left knee osteoarthritis who underwent surgery on 08/15/[address] Cartagena with a left total knee arthroplasty with patellar resurfacing robotic-assisted. Postoperatively, the patient issues with wound healing for which she initially had Steri-Strip placement every week.Then she noticed swelling of the Knee. She noticed some redness also. She was subsequently seen by Dr. Blair and his PA at his office. Due to wound dehiscence, the patient was given bactrim for 10 days. No cultures were done. She was then taken in for surgery on 10/04/2020. The patient underwent irrigation and debridement of the left knee joint with polyethylene exchange of the left total knee arthroplasty. Synovial fluid was sent to the lab, which showed 12,000 RBCs, 90 WBCs with poly of 38. The patient was started on IV vancomycin. I will obtain labs. White count was 6.7, hemoglobin of 13.1, platelets of 180. ESR of 6. Sodium 139, potassium 4.2, chloride 104, bicarbonate 28, BUN 16, creatinine 0.9, glucose 126. LFTs normal. Microbiology lab revealed no organism as of yet. Knee x-ray showed left knee are 2+ in expected position. There is surrounding soft tissues changes due to recent surgery. The patient was on Bactrim by Dr. Blair's, PA for 10 days prior to admission. Today, the patient denies any fevers, chills, nausea, vomiting, diarrhea, abdominal pain, symptoms, rash. Postop pain is under control. REVIEW OF SYSTEMS: Negative except for above in HPI. PAST MEDICAL HISTORY: DJD, anxiety, depression, bilateral lower extremity varicosities, history of right acromioclavicular tendinitis. PAST SURGICAL HISTORY: Hysterectomy, bladder tuck, section, cholecystectomy, laparoscopy band, history of meniscal repair of left knee about 6 years ago. FAMILY HISTORY: As per HPI. SOCIAL HISTORY: Denies smoking, ETOH or illicit drug use. , lives alone. CURRENT MEDICATIONS: IV vancomycin and Zosyn. Other medications reviewed in medication list. ALLERGIES: No known drug allergies. PHYSICAL EXAMINATION: VITAL SIGNS: Temperature 98, pulse 62, respirations 17, blood pressure 101/61, oxygen saturation 99% on room air. GENERAL: Alert, oriented x3, pleasant female, lying in bed comfortably, in no acute distress. HEENT: Normocephalic, atraumatic. Anicteric. NECK: Supple, no JVD. LUNGS: Clear bilaterally. No wheezing. HEART: S1, S2. No gallops or murmurs. ABDOMEN: Soft, obese. Bowel sounds present, nontender, nondistended, no rebound or guarding. EXTREMITIES: No edema. Left lower extremity in dressing with drain in place, not taken down. Able to wiggle toes. No thigh swelling or warmth noted. MUSCULOSKELETAL: No joint swelling except for above. MICRO: Left knee culture, no organisms seen. Cultures negative. DIAGNOSTICS: Left knee x-ray as above. IMPRESSION: 1. Wound drainage, left knee with history of left total knee arthroplasty on 08/15/2020, treated with empiric p.o. Bactrim 10 days prior to admission. No cultures were done prior to initiation of bactrim per Dr Blair. - Status post irrigation and debridement of the left knee joint with polyethylene exchange of the left total knee arthroplasty on 10/04/2020. - Intraoperative Cultures negative so far - Intraoperative Synovial fluid showed 90 nucleated cells, 120,000 RBC, 38% PMNs. 2. History of degenerative joint disease. 3. History of left knee meniscal repair about 6 years ago. 4. Bilateral lower extremity varicosities. 5. History of right acromioclavicular tendinitis. 6. Depression and anxiety. 7. Hyperkalemia. RECOMMENDATIONS: 1. Continue Zosyn. 2. Discontinue vancomycin. 3. Start daptomycin. 4. Follow up labs and cultures. 5. Continue supportive care. 6. Wound care as directed. 7. PT and OT as directed. Thank you for allowing me to participate in this patient's care. If you have any questions, do not hesitate to contact me. Discussed with Dr. Blair this am ALLEN/CARLOS GOMEZ: ALLEN/luz TID: [id number] MTDD
[2020-10-05] MEDS ORDERED: ONDANSETRON PF 4 MG/2 ML VIAL. IVP PRN (12:00)
[2020-10-05] MEDS ORDERED: ONDANSETRON ODT 4 MG TAB.RAPDIS. PO PRN (12:00)
[2020-10-05 15:00] VITALS: BP 140/87
[2020-10-05] MEDS ORDERED: BISACODYL 10 MG SUPP.RECT. PR PRN (16:00)
[2020-10-05] MEDS: IV NORMAL SALINE 1000ML BAG 1,000 ML IV SCH (18:18)
[2020-10-05 19:00] VITALS: BP 108/57
[2020-10-05] MEDS: LACTOBACILLUS RHAMNOSUS GG 1 CAPSULE. PO SCH (20:05)
[2020-10-05 23:00] VITALS: BP 118/51
[2020-10-06] MEDS: PIPERACILLIN/TAZOBACTAM 3.375 GM in IV NORMAL SALINE 50ML 50 ML IV SCH ×4 (00:07→17:55)
[2020-10-06] MEDS: traMADol 50 MG TABLET PO SCH ×4 (00:07→17:57)
[2020-10-06] MEDS: oxyCODONE IR 5 MG TABLET PO PRN (01:41)
[2020-10-06 03:00] VITALS: BP 90/54
[2020-10-06] MEDS: ACETAMINOPHEN 500 MG TABLET PO SCH ×4 (03:00→20:32)
[2020-10-06] MEDS: GABAPENTIN 100 MG CAPSULE. PO SCH ×3 (05:53→20:32)
[2020-10-06 07:00] VITALS: BP 99/62
--- NOTE | 2020-10-06 07:44 | PDOC ---
Infectious Disease Note Subjective: Subjective Pt without complaints had some bleeding from postop site No F/N/V/D/Rash Vital Signs: Vital Signs Vital Signs Date Time Temp Pulse Resp B/P (MAP) Pulse Ox O2 Delivery O2 Flow Rate FiO2 10/06/20 06:36 14 Room Air 10/06/20 03:00 98.8 63 90/54 (66) 96 98.8 10/05/20 21:37 1.0 Physical Exam: PHYSICAL EXAM GENERAL: Alert, oriented x3, pleasant female, lying in bed comfortably, in no acute distress. HEENT: Normocephalic, atraumatic. Anicteric. NECK: Supple, no JVD. LUNGS: Clear bilaterally. No wheezing. HEART: S1, S2. No gallops or murmurs. ABDOMEN: Soft, obese. Bowel sounds present, nontender, nondistended, no rebound or guarding. EXTREMITIES: No edema. Left lower extremity dressing in place with drain in place, not taken down. Just had it done this am by Dr Blair, Able to wiggle toes. No thigh swelling or warmth noted. MUSCULOSKELETAL: No joint swelling except for above. Medications: Inpatient Meds: Medications reviewed. Labs: Micro Synovial fluid and intraop cult neg so far Objective: Assessment: 1. Wound drainage, left knee with history of left total knee arthroplasty on 08/15/2020, treated with empiric p.o. Bactrim 10 days prior to admission. No cultures were done prior to initiation of bactrim per Dr Blair. - Status post irrigation and debridement of the left knee joint with polyethylene exchange of the left total knee arthroplasty on 10/04/2020. - Intraoperative Cultures negative so far - Intraoperative Synovial fluid showed 90 nucleated cells, 120,000 RBC, 38% PMNs.cult neg 2. History of degenerative joint disease. 3. History of left knee meniscal repair about 6 years ago. 4. Bilateral lower extremity varicosities. 5. History of right acromioclavicular tendinitis. 6. Depression and anxiety. 7. Hyperkalemia. Plan: Plan of Care cont current abx Follow up labs and cultures. Wound care as directed. PT and OT as directed. D/W GURWINDER Avila MD Oct 06, 2020 07:44
--- NOTE | 2020-10-06 08:35 | PDOC ---
PROGRESS NOTES Date of Service DATE: 10/06/20 TIME: 08:24 Subjective Subjective Problems overnight: She notes a bit of stabbing pain and had some incisional drainage to the mid distal portion requiring changing her manuelito dressing last night. Otherwise getting up and around reasonably well no other complaints Objective Vital Signs Vital Signs Date Time Temp Pulse Resp B/P (MAP) Pulse Ox O2 Delivery O2 Flow Rate FiO2 10/06/20 07:00 97.5 59 16 99/62 (74) 96 Room Air 97.5 10/05/20 21:37 1.0 Physical Exam On exam she has no redness or erythema good early motion intact distal neurovascular status, manuelito dressing has some moderate bloody shadowing mid distal portion of the wound Labs Laboratory Tests Test 10/04/20 13:13 10/04/20 18:40 Body Fluid Source Synovial Body Fluid Color Red Body Fluid Clarity Turbid Body Fluid Nucleated Cells 90 /cmm (Not Established) Body Fluid Mononuclear WBCs (%) 62 % Body Fluid Polymorphonuclear Cells 38 % Body Fluid Total RBCs Counted 735016 /cmm (Not White Blood Count 6.7 x10^3/uL (4.0-11.0) Red Blood Count 3.88 x10^6/uL (3.50-5.40) Hemoglobin 13.1 g/dL (12.0-15.5) Hematocrit 39.4 % (36.0-47.0) Mean Corpuscular Volume 102 fL (79-100) Mean Corpuscular Hemoglobin 34 pg (25-35) Mean Corpuscular Hemoglobin Concent 33 g/dL (31-37) Red Cell Distribution Width 13.2 % (11.5-14.5) Platelet Count 180 x10^3/uL (140-400) Neutrophils (%) (Auto) 93 % (31-73) Lymphocytes (%) (Auto) 5 % (24-48) Monocytes (%) (Auto) 2 % (0-9) Eosinophils (%) (Auto) 0 % (0-3) Basophils (%) (Auto) 0 % (0-3) Neutrophils # (Auto) 6.2 x10^3/uL (1.8-7.7) Lymphocytes # (Auto) 0.3 x10^3/uL (1.0-4.8) Monocytes # (Auto) 0.1 x10^3/uL (0.0-1.1) Eosinophils # (Auto) 0.0 x10^3/uL (0.0-0.7) Basophils # (Auto) 0.0 x10^3/uL (0.0-0.2) Segmented Neutrophils % 93 % (35-66) Band Neutrophils % 1 % (0-9) Lymphocytes % 6 % (24-48) Platelet Estimate Adequate (ADEQUATE) Erythrocyte Sedimentation Rate 6 (0-25) Sodium Level 139 mmol/L (136-145) Potassium Level 5.2 mmol/L (3.5-5.1) Chloride Level 104 mmol/L (98-107) Carbon Dioxide Level 28 mmol/L (21-32) Anion Gap 7 (6-14) Blood Urea Nitrogen 16 mg/dL (7-20) Creatinine 0.9 mg/dL (0.6-1.0) Estimated GFR (Cockcroft-Gault) 62.3 BUN/Creatinine Ratio 18 (6-20) Glucose Level 126 mg/dL (70-99) Calcium Level 8.7 mg/dL (8.5-10.1) Total Bilirubin 0.3 mg/dL (0.2-1.0) Aspartate Amino Transf (AST/SGOT) 18 U/L (15-37) Alanine Aminotransferase (ALT/SGPT) 17 U/L (14-59) Alkaline Phosphatase 82 U/L (46-116) C-Reactive Protein, Quantitative 1.2 mg/L (0-3.3) Total Protein 6.5 g/dL (6.4-8.2) Albumin 3.4 g/dL (3.4-5.0) Albumin/Globulin Ratio 1.1 (1.0-1.7) Assessment Assessment POD#2 irrigation debridement polyethylene exchange total knee arthroplasty Plan Plan of Care Cultures are negative to date, cell count was relatively low probability however there is suspicion of tracking to the joint based on her intraoperative findings. I discussed this with Dr. Campa. Likely will need empiric antibiotics anyway as we have discussed more aggressive treatment than last due to the severe consequences of not treating aggressively potentially. Continue mobilize with physical therapy but cut back on the bending. She may need a wound VAC Sima type device if continued drainage is observed Justicifation of Admission Dx: Justifications for Admission: Justification of Admission Dx: Yes Comments: Awaiting cultures from irrigation debridement procedure intraoperatively MONSERRAT SULLIVAN MD Oct 06, 2020 08:35
[2020-10-06] MEDS: LACTOBACILLUS RHAMNOSUS GG 1 CAPSULE. PO SCH ×2 (10:38→20:32)
[2020-10-06] MEDS: SENNOSIDES/DOCUSATE 8.6/50MG TABLET. PO SCH (10:38)
[2020-10-06] MEDS: FERROUS SULFATE 325 MG TABLET. PO SCH ×2 (10:39→17:57)
[2020-10-06] MEDS: CITALOPRAM 20 MG TABLET. PO SCH (10:39)
[2020-10-06] MEDS: MULTIVITAMIN with MINERAL TABLET. PO SCH (10:39)
[2020-10-06] MEDS: OXYBUTYNIN CHLORIDE 5 MG TABLET PO SCH ×3 (10:39→20:32)
[2020-10-06] MEDS: CELECOXIB 100 MG CAPSULE. PO SCH (10:40)
[2020-10-06 11:00] VITALS: BP 117/64
[2020-10-06] MEDS: DAPTOmycin (GENERIC) IVPB 440 MG in IV NORMAL SALINE 50ML 50 ML IV SCH (13:57)
[2020-10-06 15:00] VITALS: BP 12/73
[2020-10-06] MEDS: IV NORMAL SALINE 1000ML BAG 1,000 ML IV SCH (15:30)
--- NOTE | 2020-10-06 17:52 | NUR ---
Wound/Ostomy Care Wound Type/Assessment: Wound care consult for eval and placement of prevena style wound vac to left knee surgical incision. Madison drain present upon assessment with moderate serosanguineous drainage to it, pt states that drain was just replaced yesterday d/t drainage. No other wounds noted on head to toe skin assessment. Wound assessed and cleansed with saline wash and ChloraPrep to incision line, picture taken, incision seems to be draining the most towards the distal site of it. Wound vac alarms reviewed with pt. Treatment Recommendations/Plan: surgical incision cleansed with saline wash and then ChloraPrep, periwound skin-prepped and covered with drape, incision covered with contact layer and 1 piece of silver foam, to upper leg to proximal incision. Education provided: pt educated on PU prevention and wound vac alarms Offloading surface/device: pillows to elevate legs Recommended Referrals/Tests: n/a Discharge Recommendations for dressings: same as above
[2020-10-06 19:15] VITALS: BP 108/65
[2020-10-06 22:58] VITALS: BP 109/66
[2020-10-07] MEDS: PIPERACILLIN/TAZOBACTAM 3.375 GM in IV NORMAL SALINE 50ML 50 ML IV SCH ×4 (00:37→17:31)
[2020-10-07] MEDS: traMADol 50 MG TABLET PO SCH ×6 (00:39→23:57)
[2020-10-07 02:59] VITALS: BP 110/65
[2020-10-07] MEDS: ACETAMINOPHEN 500 MG TABLET PO SCH ×4 (03:08→20:35)
[2020-10-07] MEDS: GABAPENTIN 100 MG CAPSULE. PO SCH ×3 (05:53→20:35)
[2020-10-07 07:00] VITALS: BP 122/64
[2020-10-07] MEDS: SENNOSIDES/DOCUSATE 8.6/50MG TABLET. PO SCH (07:52)
[2020-10-07] MEDS: LACTOBACILLUS RHAMNOSUS GG 1 CAPSULE. PO SCH ×2 (07:52→20:34)
[2020-10-07] MEDS: oxyCODONE IR 5 MG TABLET PO PRN (07:52)
[2020-10-07] MEDS: CELECOXIB 100 MG CAPSULE. PO SCH (07:53)
[2020-10-07] MEDS: MULTIVITAMIN with MINERAL TABLET. PO SCH (07:53)
[2020-10-07] MEDS: FERROUS SULFATE 325 MG TABLET. PO SCH ×2 (07:53→17:30)
[2020-10-07] MEDS: OXYBUTYNIN CHLORIDE 5 MG TABLET PO SCH ×3 (07:53→20:34)
[2020-10-07] MEDS: CITALOPRAM 20 MG TABLET. PO SCH (07:53)
[2020-10-07 11:00] VITALS: BP 108/75
--- NOTE | 2020-10-07 11:28 | PDOC ---
Infectious Disease Note Subjective: Subjective Pt without complaints Patient underwent wound VAC placement by wound team yesterday due to bleeding from operative wound site No F/N/V/D/Rash Vital Signs: Vital Signs Vital Signs Date Time Temp Pulse Resp B/P (MAP) Pulse Ox O2 Delivery O2 Flow Rate FiO2 10/07/20 11:00 97.7 57 16 108/75 (86) 99 Room Air 97.7 10/07/20 07:40 1.0 Physical Exam: PHYSICAL EXAM GENERAL: Alert, oriented x3, pleasant female, lying in bed comfortably, in no acute distress. HEENT: Normocephalic, atraumatic. Anicteric. NECK: Supple, no JVD. LUNGS: Clear bilaterally. No wheezing. HEART: S1, S2. No gallops or murmurs. ABDOMEN: Soft, obese. Bowel sounds present, nontender, nondistended, no rebound or guarding. EXTREMITIES: No edema. Left lower extremity dressing in place with drain in place, not taken down. Just had it done this am by Dr Blair, Able to wiggle toes. No thigh swelling or warmth noted. MUSCULOSKELETAL: No joint swelling except for above. Medications: Inpatient Meds: Medications reviewed. Labs: Micro RUN DATE: 10/06/20 [facility] LAB *LIVE* PAGE 1 RUN TIME: 2145 Specimen Inquiry PATIENT: SHERIF VORA ACCT: [id number] LOC: [address] [place] [address] U: [id number] AGE/SX: 70/F ROOM: 404 RE10/05/[address]: MONSERRAT BLAIR MD : 1950 BED: 1 DIS: STATUS: ADM IN TLOC: SPEC #: [id number] PRAVEENA: 10/04/20 STATUS: RES REQ #: [id number] RECD: 10/04/[address]: MONSERRAT BLAIR MD [facility] 10/04[facility]20-[address]: RADHA SOARES SPDESC: ORDERED: ANAER/AEROB/MILVIA COMMENTS: LEFT KNEE JOINT FLUID Procedure Result GRAM STAIN Final Final NO ORGANISMS SEEN. SQUAMOUS EPI CELL:NOT APPLICABLE PMN (WBCs):NONE SEEN Unless otherwise specified, Testing Performed by: [address] [address] For Inquires, the Physician may contact the Microbiology department at [phone] ANAEROBIC-AEROBIC CULTURE Preliminary Preliminary RARE [STAPHYLOCOCCUS EPIDERMIDIS] on 10/06/20 at 1702 STAPHYLOCOCCUS EPIDERMIDIS Unless otherwise specified, Testing Performed by: [address] [address] For Inquires, the Physician may contact the Microbiology department at [phone] RUN DATE: 10/06/20 [facility] LAB *LIVE* PAGE 1 RUN TIME: 1448 Specimen Inquiry PATIENT: DIONYSHERIF Genny ACCT: [id number] LOC: [address] [place] [address] U: [id number] AGE/SX: 70/F ROOM: 404 RE10/05/[address]: MONSERRAT BLAIR MD : 1950 BED: 1 DIS: STATUS: ADM IN TLOC: SPEC #: [id number] PRAVEENA: 10/04/20 STATUS: RES REQ #: [id number] RECD: 10/04/[address] [facility] [address]: MONSERRAT BLAIR MD SOURCE: TISSUE ENTR: 10/04/[address] [facility] [address]: RADHA SOARES SPDESC: MASS ORDERED: ANAER/AEROB/MILVIA COMMENTS: DEEP TISSUE Procedure Result GRAM STAIN Final Final NO ORGANISMS SEEN. RBC:MANY SQUAMOUS EPI CELL:RARE PMN (WBCs):RARE Unless otherwise specified, Testing Performed by: [address] [address] For Inquires, the Physician may contact the Microbiology department at [phone] ANAEROBIC-AEROBIC CULTURE Preliminary Preliminary No Growth on 10/05/20 at 114 No Growth on 10/06/20 at 1445 Unless otherwise specified, Testing Performed by: [address] [address] For Inquires, the Physician may contact the Microbiology department at [phone] Objective: Assessment: 1. Wound drainage, left knee with history of left total knee arthroplasty on 08/15/2020, treated with empiric p.o. Bactrim 10 days prior to admission. No cultures were done prior to initiation of bactrim per Dr Blair. - Status post irrigation and debridement of the left knee joint with polyethylene exchange of the left total knee arthroplasty on 10/04/2020. - Intraoperative Cultures negative so far - Intraoperative Synovial fluid showed 90 nucleated cells, 120,000 RBC, 38% PMNs.cult staph epidermidis 2. History of degenerative joint disease. 3. History of left knee meniscal repair about 6 years ago. 4. Bilateral lower extremity varicosities. 5. History of right acromioclavicular tendinitis. 6. Depression and anxiety. 7. Hyperkalemia. Plan: Plan of Care Continue Zosyn and daptomycin for now Patient will be discharged home with home health per Dr. Blair Limited choices for outpatient antibiotics for this patient PICC line placement PICC casing in line feeder and complications discussed Start Invanz here before discharge for outpatient treatment Continue daptomycin Prescription in chart Side effects of antibiotics discussed Probiotics Social work to assist with discharge antibiotics Q. Saturday labs CBC/BUN/creatinine/CPK/ESR/CRP. Fax results to [phone] Follow-up ID clinic on OCT 20 at 2:30 PM [phone] Wound/VAC care per Orthopedics PT and OT as directed. Discussed with nursing staff GURWINDER SINGER MD Oct 07, 2020 11:27
[2020-10-07] MEDS ORDERED: 0.9 % SODIUM CHLORIDE 10 ML DISP.SYRIN. IV PRN ×3 (12:30)
[2020-10-07] MEDS ORDERED: LIDOCAINE WITH 8.4% SOD BICARB 3 ML DISP.SYRIN. ONE (13:22)
[2020-10-07] MEDS ORDERED: LIDOCAINE WITH 8.4% SOD BICARB 3 ML DISP.SYRIN. INJ ONE (14:00)
--- NOTE | 2020-10-07 14:29 | RAD ---
Date: 10/07/2020 Exam: Fluoroscopic and ultrasound guided peripheral central venous catheter placement. Indication: Consent: The procedure was explained in its entirety to the patient or the patients designated repres entative by a member of the treatment team, including a discussion of the risks, benefits and commonl y accepted alternatives to the procedure, as well as the expected consequences of no therapy whatsoev er. Discussion of the risks included, but was not limited to, those that are most frequent and thos e that are rare but possibly severe or life-threatening, as well as the possibility of unforeseen com plications. Discussion: A timeout procedure was performed. The patient was prepped and draped using maximum sterile techniq ue, including the use of: Current guideline approved cutaneous antisepsis, a large sterile sheet to e stablish a sterile field. Additionally the jetting machine operator wore a hat, mask, sterile gloves, a sterile gown during the procedure as well as practiced acceptable hand hygiene prior to placing the line. 1% lidoc sofia was administered for local anesthesia. Ultrasound evaluation demonstrates a patent right basilic vein. Reference images were saved in the medical record. The selected vein was accessed using micropuncture technique. A guidewire was advance d centrally. The PICC line was cut to length, and advanced through a peel-away sheath such that it's tip resides at the cavoatrial junction. The peel-away sheath a sheath was removed. The catheter was secured in place. The catheter was found to flush and aspirate normally.. Sterile dressings were appl ied. No immediate complications were identified. Fluoroscopy time: 0.3 minutes Dose area product: 1 Gycm2 Impression: Successful placement of a right upper extremity PICC line Electronically signed by: Christian Roberson MD (10/07/2020 2:26 PM) [id number]
[2020-10-07 15:00] VITALS: BP 112/61
[2020-10-07] MEDS: IV NORMAL SALINE 1000ML BAG 1,000 ML IV SCH (15:30)
[2020-10-07] MEDS: DAPTOmycin (GENERIC) IVPB 440 MG in IV NORMAL SALINE 50ML 50 ML IV SCH (15:50)
[2020-10-07 19:24] VITALS: BP 120/65
[2020-10-07] MEDS: ZOLPIDEM 5 MG TABLET. PO PRN (20:36)
[2020-10-07 23:19] VITALS: BP 109/62
[2020-10-08] MEDS: ACETAMINOPHEN 500 MG TABLET PO SCH ×4 (02:49→20:49)
[2020-10-08 02:57] VITALS: BP 120/69
[2020-10-08] MEDS: GABAPENTIN 100 MG CAPSULE. PO SCH ×3 (06:43→20:49)
[2020-10-08] MEDS: PIPERACILLIN/TAZOBACTAM 3.375 GM in IV NORMAL SALINE 50ML 50 ML IV SCH ×5 (06:43→23:00)
[2020-10-08] MEDS: traMADol 50 MG TABLET PO SCH ×4 (06:43→23:06)
[2020-10-08 07:00] VITALS: BP 122/76
--- NOTE | 2020-10-08 07:29 | PDOC ---
PROGRESS NOTES Date of Service DATE: 10/08/20 TIME: 07:26 Subjective Subjective Problems overnight: Delayed entry from yesterday, continued bleeding from wound site, getting up and around well occasional sharp stabbing pain Objective Vital Signs Vital Signs Date Time Temp Pulse Resp B/P (MAP) Pulse Ox O2 Delivery O2 Flow Rate FiO2 10/08/20 07:17 14 Room Air 10/08/20 02:57 97.7 64 120/69 (86) 99 97.7 10/07/20 07:40 1.0 Physical Exam Significant drainage on another manuelito dressing no redness warmth or erythema knee is swollen distal neurovascular status intact Labs Staph epidermidis noted on knee joint fluid culture preliminarily Assessment Assessment POD#irrigation debridement with polyethylene exchange Plan Plan of Care Agree with delay in discharge awaiting final cultures to optimize antibiotics Wound VAC ordered due to ongoing wound drainage Justicifation of Admission Dx: Justifications for Admission: Justification of Admission Dx: Yes Comments: Cultures pending for postoperative antibiotic direction MONSERRAT SULLIVAN MD Oct 08, 2020 07:29
--- NOTE | 2020-10-08 07:33 | PDOC ---
PROGRESS NOTES Date of Service DATE: 10/08/20 TIME: 07:29 Subjective Subjective Problems overnight: Reports pain controlled good, taking oral pain medication. Getting up and around well Objective Vital Signs Vital Signs Date Time Temp Pulse Resp B/P (MAP) Pulse Ox O2 Delivery O2 Flow Rate FiO2 10/08/20 07:17 14 Room Air 10/08/20 02:57 97.7 64 120/69 (86) 99 97.7 10/07/20 07:40 1.0 Physical Exam Wound VAC is intact with very little bloody drainage knee has a moderate effusion no redness warmth or erythema good range of motion calf is soft and nontender distal neurovascular status intact Labs Cultures continue pending, preliminarily staph epidermidis rare on synovial fluid culture Assessment Assessment POD#irrigation debridement polyethylene exchange left total knee arthroplasty Plan Plan of Care I discussed with the patient and best judgment is no blood thinner due to her ongoing bleeding and her good mobility Continue monitor cultures for antibiotics adjustment potentially per infectious disease, PICC line intact Plan discharge with home health pending final cultures Continue mobilize with physical therapy Justicifation of Admission Dx: Justifications for Admission: Justification of Admission Dx: Yes Comments: Staph epidermidis on preliminary cultures rare on synovial fluid, awaiting final cultures for antibiotic disposition MONSERRAT SULLIVAN MD Oct 08, 2020 07:33
--- NOTE | 2020-10-08 08:06 | PDOC ---
Infectious Disease Note Subjective: Subjective Pt without complaints Postop pain is under control Able to undergo PT and OT without difficulty No F/N/V/D/Rash Vital Signs: Vital Signs Vital Signs Date Time Temp Pulse Resp B/P (MAP) Pulse Ox O2 Delivery O2 Flow Rate FiO2 10/08/20 07:45 Room Air 10/08/20 07:17 14 10/08/20 02:57 97.7 64 120/69 (86) 99 97.7 10/07/20 07:40 1.0 Physical Exam: PHYSICAL EXAM GENERAL: Alert, oriented x3, pleasant female, lying in bed comfortably, in no acute distress. HEENT: Normocephalic, atraumatic. Anicteric. NECK: Supple, no JVD. LUNGS: Clear bilaterally. No wheezing. HEART: S1, S2. No gallops or murmurs. ABDOMEN: Soft, obese. Bowel sounds present, nontender, nondistended, no rebound or guarding. EXTREMITIES: No edema. Left lower extremity wound vac with drain in place, MUSCULOSKELETAL: No joint swelling except for above. PICC line RUE clean Medications: Inpatient Meds: Medications reviewed. Labs: Micro RUN DATE: 10/06/20 [facility] *LIVE* PAGE 1 RUN TIME: 1705 Specimen Inquiry PATIENT: SHERIF VORA ACCT: [id number] LOC: [address] [place] [address] U: [id number] AGE/SX: 70/F ROOM: 404 RE10/05/[address]: MONSERRAT BLAIR MD : 1950 BED: 1 DIS: STATUS: ADM IN TLOC: SPEC #: [id number] PRAVEENA: 10/04/20 STATUS: RES REQ #: [id number] RECD: 10/04/[address] [facility] [address]: MONSERRAT BLAIR MD SOURCE: [facility] ENTR: 10/04/[address] [facility] [address]: RADHA SOARES SPDESC: ORDERED: ANAER/AEROB/GS COMMENTS: LEFT KNEE JOINT FLUID ---- -------- Procedure Result GRAM STAIN Final Final NO ORGANISMS SEEN. SQUAMOUS EPI CELL:NOT APPLICABLE PMN (WBCs):NONE SEEN Unless otherwise specified, Testing Performed by: [address] [address] For Inquires, the Physician may contact the Microbiology department at [phone] ANAEROBIC-AEROBIC CULTURE Preliminary Preliminary RARE [STAPHYLOCOCCUS EPIDERMIDIS] on 10/06/20 at 1702 STAPHYLOCOCCUS EPIDERMIDIS Unless otherwise specified, Testing Performed by: [address] [address] For Inquires, the Physician may contact the Microbiology department at [phone] RUN DATE: 10/06/20 [facility] LAB *LIVE* PAGE 1 RUN TIME: 1448 Specimen Inquiry PATIENT: SHERIF VORA ACCT: [id number] LOC: [address] [place] [address] U: [id number] AGE/SX: 70/F ROOM: 404 RE10/05/[address]: MONSERRAT BLAIR MD : 1950 BED: 1 DI S: STATUS: ADM IN TLOC: SPEC #: [id number] PRAVEENA: 10/04/20 STATUS: RES REQ #: [id number] RECD: 10/04/[address] [facility] [address]: MONSERRAT BLAIR MD SOURCE: TISSUE ENTR: 10/04/[address]: RADHA SOARES SPDESC: MASS ORDERED: ANAER/AEROB/GS COMMENTS: DEEP TISSUE Procedure Result GRAM STAIN Final Final NO ORGANISMS SEEN. RBC:MANY SQUAMOUS EPI CELL:RARE PMN (WBCs):RARE Unless otherwise specified, Testing Performed by: [address] [address] For Inquires, the Physician may contact the Microbiology department at [phone] ANAEROBIC-AEROBIC CULTURE Preliminary Preliminary No Growth on 10/05/20 at 1145 No Growth on 10/06/20 at 1445 Unless otherwise specified, Testing Performed by: [address] [address] For Inquires, the Physician may contact the Microbiology department at [phone] Objective: Assessment: 1. Wound drainage, left knee with history of left total knee arthroplasty on 08/15/2020, treated with empiric p.o. Bactrim 10 days prior to admission. No cultures were done prior to initiation of bactrim per Dr Blair. - Status post irrigation and debridement of the left knee joint with polyethylene exchange of the left total knee arthroplasty on 10/04/2020. - Intraoperative left knee cultures negative so far - Intraoperative Synovial fluid showed 90 nucleated cells, 120,000 RBC, 38% PMNs. cult staph epidermidis, -ESR 6, CRP 1.2 2. History of degenerative joint disease. 3. History of left knee meniscal repair about 6 years ago. 4. Bilateral lower extremity varicosities. 5. History of right acromioclavicular tendinitis. 6. Depression and anxiety. 7. Hyperkalemia. Plan: Plan of Care Continue Zosyn and daptomycin for now We will modify treatment depending on culture results Patient is ready for discharge per team Transition to Invanz before discharge Start Invanz first dose here before discharge Continue daptomycin Prescription in chart Side effects of antibiotics discussed Probiotics Social work to assist with discharge antibiotics Q. Saturday labs CBC/BUN/creatinine/CPK/ESR/CRP. Fax results to [phone] Follow-up ID clinic on OCT 20 at 2:30 PM [phone] Wound/VAC care per Orthopedics PT and OT as directed. Discussed with nursing staff GURWINDER SINGER MD Oct 08, 2020 08:06
[2020-10-08] MEDS: FERROUS SULFATE 325 MG TABLET. PO SCH ×2 (08:40→17:04)
[2020-10-08] MEDS: LACTOBACILLUS RHAMNOSUS GG 1 CAPSULE. PO SCH ×2 (08:40→20:48)
[2020-10-08] MEDS: SENNOSIDES/DOCUSATE 8.6/50MG TABLET. PO SCH (08:40)
[2020-10-08] MEDS: MULTIVITAMIN with MINERAL TABLET. PO SCH (08:40)
[2020-10-08] MEDS: OXYBUTYNIN CHLORIDE 5 MG TABLET PO SCH ×3 (08:40→20:49)
[2020-10-08] MEDS: CITALOPRAM 20 MG TABLET. PO SCH (08:41)
[2020-10-08] MEDS: CELECOXIB 100 MG CAPSULE. PO SCH (08:41)
[2020-10-08 10:27] LABS: BASO % 1 % (0-3); EOS # 0.2 x10^3/uL (0.0-0.7); EOS % 5 % (0-3); HEMATOCRIT 36.1 % (36.0-47.0); HEMOGLOBIN 12.1 g/dL (12.0-15.5); LYMPH # 0.9 x10^3/uL (1.0-4.8); LYMPH % 19 % (24-48); MEAN CORPUSCULAR HEMOGLOBIN 34 pg (25-35); MEAN CORPUSCULAR HGB CONC 34 g/dL (31-37); MEAN CORPUSCULAR VOLUME 101 fL (79-100); MONO # 0.4 x10^3/uL (0.0-1.1); MONO % 8 % (0-9); NEUT # 3.3 x10^3/uL (1.8-7.7); NEUT % 68 % (31-73); PLATELET COUNT 176 x10^3/uL (140-400); RED BLOOD COUNT 3.58 x10^6/uL (3.50-5.40); RED CELL DISTRIBUTION WIDTH 13.3 % (11.5-14.5); WHITE BLOOD COUNT 4.9 x10^3/uL (4.0-11.0)
[2020-10-08] MEDS: IV NORMAL SALINE 1000ML BAG 1,000 ML IV SCH (10:30)
[2020-10-08 11:00] VITALS: BP 111/64
[2020-10-08 11:09] LABS: ALBUMIN 3.1 g/dL (3.4-5.0); ALBUMIN/GLOBULIN RATIO 1.1 (1.0-1.7); CALCIUM 8.4 mg/dL (8.5-10.1); CREATININE 1.1 mg/dL (0.6-1.0); GFR 49.4; POTASSIUM 3.7 mmol/L (3.5-5.1); TOTAL BILIRUBIN 0.5 mg/dL (0.2-1.0)
[2020-10-08] MEDS: DAPTOmycin (GENERIC) IVPB 440 MG in IV NORMAL SALINE 50ML 50 ML IV SCH (13:31)
[2020-10-08 15:00] VITALS: BP 129/69
[2020-10-08 19:05] VITALS: BP 120/73
[2020-10-08 23:00] VITALS: BP 135/75
[2020-10-08] MEDS: ZOLPIDEM 5 MG TABLET. PO PRN (23:06)
[2020-10-09] MEDS: ACETAMINOPHEN 500 MG TABLET PO SCH ×4 (02:28→20:00)
[2020-10-09 02:51] VITALS: BP 137/68
[2020-10-09] MEDS: PIPERACILLIN/TAZOBACTAM 3.375 GM in IV NORMAL SALINE 50ML 50 ML IV SCH ×3 (05:15→16:10)
[2020-10-09] MEDS: traMADol 50 MG TABLET PO SCH ×3 (05:16→16:09)
[2020-10-09] MEDS: GABAPENTIN 100 MG CAPSULE. PO SCH ×3 (05:16→20:00)
[2020-10-09 07:00] VITALS: BP 115/80
[2020-10-09] MEDS: FERROUS SULFATE 325 MG TABLET. PO SCH ×2 (07:54→16:09)
[2020-10-09] MEDS: SENNOSIDES/DOCUSATE 8.6/50MG TABLET. PO SCH (07:54)
[2020-10-09] MEDS: LACTOBACILLUS RHAMNOSUS GG 1 CAPSULE. PO SCH ×2 (07:54→19:59)
[2020-10-09] MEDS: OXYBUTYNIN CHLORIDE 5 MG TABLET PO SCH ×3 (07:55→20:00)
[2020-10-09] MEDS: MULTIVITAMIN with MINERAL TABLET. PO SCH (07:55)
[2020-10-09] MEDS: CITALOPRAM 20 MG TABLET. PO SCH (07:55)
[2020-10-09] MEDS: CELECOXIB 100 MG CAPSULE. PO SCH (07:55)
--- NOTE | 2020-10-09 08:17 | PDOC ---
Infectious Disease Note Subjective: Subjective Pt without complaints has some postop site pain No F/N/V/D/Rash Vital Signs: Vital Signs Vital Signs Date Time Temp Pulse Resp B/P (MAP) Pulse Ox O2 Delivery O2 Flow Rate FiO2 10/09/20 07:12 Room Air 10/09/20 05:49 96 10/09/20 02:51 97.8 62 18 137/68 (91) 97.8 10/08/20 23:36 1.0 Physical Exam: PHYSICAL EXAM GENERAL: Alert, oriented x3, pleasant female, lying in bed comfortably, in no acute distress. HEENT: Normocephalic, atraumatic. Anicteric. NECK: Supple, no JVD. LUNGS: Clear bilaterally. No wheezing. HEART: S1, S2. No gallops or murmurs. ABDOMEN: Soft, obese. Bowel sounds present, nontender, nondistended, no rebound or guarding. EXTREMITIES: No edema. Left lower extremity wound vac with drain in place, MUSCULOSKELETAL: No joint swelling except for above. PICC line RUE clean Medications: Inpatient Meds: Medications reviewed. Labs: Lab Laboratory Tests Test 10/08/20 10:10 White Blood Count 4.9 x10^3/uL (4.0-11.0) Red Blood Count 3.58 x10^6/uL (3.50-5.40) Hemoglobin 12.1 g/dL (12.0-15.5) Hematocrit 36.1 % (36.0-47.0) Mean Corpuscular Volume 101 fL (79-100) Mean Corpuscular Hemoglobin 34 pg (25-35) Mean Corpuscular Hemoglobin Concent 34 g/dL (31-37) Red Cell Distribution Width 13.3 % (11.5-14.5) Platelet Count 176 x10^3/uL (140-400) Neutrophils (%) (Auto) 68 % (31-73) Lymphocytes (%) (Auto) 19 % (24-48) Monocytes (%) (Auto) 8 % (0-9) Eosinophils (%) (Auto) 5 % (0-3) Basophils (%) (Auto) 1 % (0-3) Neutrophils # (Auto) 3.3 x10^3/uL (1.8-7.7) Lymphocytes # (Auto) 0.9 x10^3/uL (1.0-4.8) Monocytes # (Auto) 0.4 x10^3/uL (0.0-1.1) Eosinophils # (Auto) 0.2 x10^3/uL (0.0-0.7) Basophils # (Auto) 0.0 x10^3/uL (0.0-0.2) Erythrocyte Sedimentation Rate 13 (0-25) Sodium Level 139 mmol/L (136-145) Potassium Level 3.7 mmol/L (3.5-5.1) Chloride Level 105 mmol/L (98-107) Carbon Dioxide Level 26 mmol/L (21-32) Anion Gap 8 (6-14) Blood Urea Nitrogen 14 mg/dL (7-20) Creatinine 1.1 mg/dL (0.6-1.0) Estimated GFR (Cockcroft-Gault) 49.4 BUN/Creatinine Ratio 13 (6-20) Glucose Level 136 mg/dL (70-99) Calcium Level 8.4 mg/dL (8.5-10.1) Total Bilirubin 0.5 mg/dL (0.2-1.0) Aspartate Amino Transf (AST/SGOT) 24 U/L (15-37) Alanine Aminotransferase (ALT/SGPT) 19 U/L (14-59) Alkaline Phosphatase 58 U/L (46-116) Creatine Kinase 64 U/L (26-192) Total Protein 6.0 g/dL (6.4-8.2) Albumin 3.1 g/dL (3.4-5.0) Albumin/Globulin Ratio 1.1 (1.0-1.7) Micro ------ ------ RUN DATE: 10/06/20 [facility] LAB *LIVE* PAGE 1 RUN TIME: 1705 Specimen Inquiry PATIENT: SHERIF VORA ACCT: [id number] LOC: [address] [place] [address] U: [id number] AGE/SX: 70/F ROOM: [facility] RE10/05/[address]: MONSERRAT BLAIR MD : 1950 BED: 1 DIS: STATUS: ADM IN TLOC: SPEC #: [id number] PRAVEENA: 10/04/20 STATUS: RES REQ #: [id number] RECD: 10/04/[address] [facility] [address]: MONSERRAT BLAIR MD SOURCE: [facility] ENTR: 10/04/[address]: RADHA SOARES SPDESC: ORDERED: MIRZA/VINNY/MILVIA COMMENTS: LEFT KNEE JOINT FLUID Procedure Result GRAM STAIN Final Final NO ORGANISMS SEEN. SQUAMOUS EPI CELL:NOT APPLICABLE PMN (WBCs):NONE SEEN Unless otherwise specified, Testing Performed by: [address] [address] For Inquires, the Physician may contact the Microbiology department at [phone] ANAEROBIC-AEROBIC CULTURE Preliminary Preliminary RARE [STAPHYLOCOCCUS EPIDERMIDIS] on 10/06/20 at 1702 STAPHYLOCOCCUS EPIDERMIDIS Unless otherwise specified, Testing Performed by: [address] [address] For Inquires, the Physician may contact the Microbiology department at [phone] RUN DATE: 10/06/20 [facility] LAB *LIVE* PAGE 1 RUN TIME: 1448 Specimen Inquiry PATIENT: SHERIF VORA ACCT: [id number] LOC: [address] [place] [address] U: [id number] AGE/SX: 70/F ROOM: 404 RE10/05/[address]: MONSERRAT BLAIR MD : 1950 BED: 1 DIS: STATUS: ADM IN TLOC: SPEC #: [id number] PRAVEENA: 10/04/20 STATUS: RES REQ #: [id number] RECD: 10/04/[address]: MONSERRAT BLAIR MD SOURCE: TISSUE ENTR: 10/04/[address]: RADHA SOARES SPDESC: MASS ORDERED: ANAER/AEROB/GS COMMENTS: DEEP TISSUE Procedure Result GRAM STAIN Final Final NO ORGANISMS SEEN. RBC:MANY SQUAMOUS EPI CELL:RARE PMN (WBCs):RARE Unless otherwise specified, Testing Performed by: [address] [address] For Inquires, the Physician may contact the Microbiology department at [phone] ANAEROBIC-AEROBIC CULTURE Preliminary Preliminary No Growth on 10/05/20 at 1144 No Growth on 10/06/20 at 1445 Unless otherwise specified, Testing Performed by: [facility] [address] [place] [address] For Inquires, the Physician may contact the Microbiology department at [phone] Objective: Assessment: 1. Wound drainage, left knee with history of left total knee arthroplasty on 08/15/2020, treated with empiric p.o. Bactrim 10 days prior to admission. No cultures were done prior to initiation of bactrim per Dr Blair. - Status post irrigation and debridement of the left knee joint with polyethylene exchange of the left total knee arthroplasty on 10/04/2020. - Intraoperative left knee cultures negative so far - Intraoperative Synovial fluid showed 90 nucleated cells, 120,000 RBC, 38% PMNs. cult staph epidermidis though intraoperative done at same time is negative Admission ESR 6, CRP 1.2 repeat ESR 13 ,CRP 13, CPK 64 on October 08 2. History of degenerative joint disease. 3. History of left knee meniscal repair about 6 years ago. 4. Bilateral lower extremity varicosities. 5. History of right acromioclavicular tendinitis. 6. Depression and anxiety. 7. Hyperkalemia. Plan: Plan of Care Continue Zosyn and daptomycin for now We will modify treatment depending on culture results Discussed with [facility], susceptibilities for staph epidermidis is still pending Transition to Invanz before discharge Start Invanz first dose here before discharge Continue daptomycin Prescription in chart Side effects of antibiotics discussed Probiotics Social work to assist with discharge antibiotics Q. Saturday labs CBC/BUN/creatinine/CPK/ESR/CRP. Fax results to [phone] Follow-up ID clinic on OCT 20 at 2:30 PM [phone] Wound/VAC care per Orthopedics PT and OT as directed. Discussed with nursing staff GURWINDER SINGER MD Oct 09, 2020 08:17
[2020-10-09 11:00] VITALS: BP 115/69
[2020-10-09] MEDS: IV NORMAL SALINE 1000ML BAG 1,000 ML IV SCH (12:22)
[2020-10-09] MEDS: DAPTOmycin (GENERIC) IVPB 440 MG in IV NORMAL SALINE 50ML 50 ML IV SCH (14:05)
[2020-10-09 15:00] VITALS: BP 110/69
[2020-10-09 19:00] VITALS: BP 113/71
[2020-10-09] MEDS: ZOLPIDEM 5 MG TABLET. PO PRN (20:01)
[2020-10-09 23:00] VITALS: BP 103/62
[2020-10-10] MEDS: PIPERACILLIN/TAZOBACTAM 3.375 GM in IV NORMAL SALINE 50ML 50 ML IV SCH ×3 (00:08→11:56)
[2020-10-10] MEDS: traMADol 50 MG TABLET PO SCH ×3 (00:09→11:56)
[2020-10-10] MEDS: ACETAMINOPHEN 500 MG TABLET PO SCH ×3 (02:53→14:42)
[2020-10-10 02:54] VITALS: BP 135/81
[2020-10-10] MEDS: GABAPENTIN 100 MG CAPSULE. PO SCH ×2 (06:11→14:42)
[2020-10-10 07:00] VITALS: BP 128/77
--- NOTE | 2020-10-10 08:44 | PDOC ---
Infectious Disease Note Subjective Subjective Pt without complaints has some postop site pain No F/N/V/D/Rash ROS ROS no n/v/d/fever or pain Vital Sign Vital Signs Vital Signs Date Time Temp Pulse Resp B/P (MAP) Pulse Ox O2 Delivery O2 Flow Rate FiO2 10/10/20 08:00 Room Air 10/10/20 07:35 14 10/10/20 07:00 98.2 58 128/77 (94) 99 98.2 10/10/20 06:14 1.0 Physical Exam PHYSICAL EXAM GENERAL: Alert, oriented x3, pleasant female, lying in bed comfortably, in no acute distress. HEENT: Normocephalic, atraumatic. Anicteric. NECK: Supple, no JVD. LUNGS: Clear bilaterally. No wheezing. HEART: S1, S2. No gallops or murmurs. ABDOMEN: Soft, obese. Bowel sounds present, nontender, nondistended, no rebound or guarding. EXTREMITIES: No edema. Left lower extremity wound vac with drain in place, MUSCULOSKELETAL: No joint swelling except for above. PICC line RUE clean Labs Micro Microbiology 10/04/20 Gram Stain - Final, Complete 10/04/20 Aerobic and Anaerobic Culture - Final, Complete 10/04/20 Gram Stain - Final, Resulted 10/04/20 Aerobic and Anaerobic Culture - Preliminary, Resulted Objective Assessment 1. Wound drainage, left knee with history of left total knee arthroplasty on 08/15/2020, treated with empiric p.o. Bactrim 10 days prior to admission. No cultures were done prior to initiation of bactrim per Dr Blair. - Status post irrigation and debridement of the left knee joint with polyethylene exchange of the left total knee arthroplasty on 10/04/2020. - Intraoperative left knee cultures negative so far - Intraoperative Synovial fluid showed 90 nucleated cells, 120,000 RBC, 38% PMNs. cult staph epidermidis though intraoperative done at same time is negative Admission ESR 6, CRP 1.2 repeat ESR 13 ,CRP 13, CPK 64 on October 08 2. History of degenerative joint disease. 3. History of left knee meniscal repair about 6 years ago. 4. Bilateral lower extremity varicosities. 5. History of right acromioclavicular tendinitis. 6. Depression and anxiety. 7. Hyperkalemia. Plan Plan of Care Continue Zosyn and daptomycin for now We will modify treatment depending on culture results Discussed with [facility], susceptibilities for staph epidermidis is still pending Transition to Invanz before discharge Start Invanz first dose here before discharge Continue daptomycin Prescription in chart Side effects of antibiotics discussed Probiotics Social work to assist with discharge antibiotics Q. Saturday labs CBC/BUN/creatinine/CPK/ESR/CRP. Fax results to [phone] Follow-up ID clinic on OCT 20 at 2:30 PM [phone] Wound/VAC care per Orthopedics PT and OT as directed. Discussed with nursing staff DARRICK SINGER MD Oct 10, 2020 08:44
[2020-10-10] MEDS: LACTOBACILLUS RHAMNOSUS GG 1 CAPSULE. PO SCH (09:28)
[2020-10-10] MEDS: OXYBUTYNIN CHLORIDE 5 MG TABLET PO SCH ×2 (09:28→14:42)
[2020-10-10] MEDS: MULTIVITAMIN with MINERAL TABLET. PO SCH (09:28)
[2020-10-10] MEDS: SENNOSIDES/DOCUSATE 8.6/50MG TABLET. PO SCH (09:28)
[2020-10-10] MEDS: CITALOPRAM 20 MG TABLET. PO SCH (09:28)
[2020-10-10] MEDS: CELECOXIB 100 MG CAPSULE. PO SCH (09:28)
[2020-10-10] MEDS: FERROUS SULFATE 325 MG TABLET. PO SCH (09:28)
[2020-10-10 11:00] VITALS: BP 110/70
[2020-10-10] MEDS: DAPTOmycin (GENERIC) IVPB 440 MG in IV NORMAL SALINE 50ML 50 ML IV SCH (14:42)
[2020-10-10 15:00] VITALS: BP 106/72
--- NOTE | 2020-10-10 15:16 | PDOC ---
PROGRESS NOTES Date of Service DATE: 10/10/20 TIME: 15:13 Subjective Subjective Problems overnight: Pain well controlled with tramadol and Tylenol as necessary, very little drainage in the wound VAC it does increase a little bit as she gets up and around with physical therapy Objective Vital Signs Vital Signs Date Time Temp Pulse Resp B/P (MAP) Pulse Ox O2 Delivery O2 Flow Rate FiO2 10/10/20 13:39 94 Room Air 1.0 10/10/20 11:00 98.1 66 18 110/70 (83) 98.1 Physical Exam Small amount of bloody drainage in the wound VAC no surrounding redness or erythema the left knee is swollen distal neurovascular status intact and there is no swelling distally or calf tenderness Assessment Assessment POD#irrigation debridement left knee with polyethylene exchange Plan Plan of Care Overall she is getting up and around well Plan discharge today with home health, tramadol for pain Antibiotics per infectious disease Plan a Prevena wound VAC on discharge and follow-up with me in 1 week Justicifation of Admission Dx: Justifications for Admission: Justification of Admission Dx: Yes Comments: Discharging now as antibiotics arranged per cultures MONSERRAT SULLIVAN MD Oct 10, 2020 15:16
[2020-10-10] MEDS ORDERED: TRAM50TA PO (15:18)
--- NOTE | 2020-10-10 15:20 | SNU/HH DC ---
DISCHARGE WITH HOME HEALTH DISCHARGE INFORMATION: Final Diagnosis: Status post irrigation debridement and polyethylene exchange for wound drainage and total knee arthroplasty Condition on Discharge: Stable CODE STATUS: Code Status: Full HOME HEALTH: Face to Face: I certify this patient is under my care and that I, or a nurse practitioner or physician's assistant project engineer working with me, had a face to face encounter that meets the physician face to face encounter requirements with this patient on [10/10/20]. Medical Complications: S/P Joint Replacement RN For Eval/Treatment: Yes Physical Therapy For: Evalulation/Treatment Pt Meets Homebound Status: Limited distance walking POST DISCHARGE ORDERS: Activity Instructions for Disc: Activity as tolerated Weight Bearing Status after Di: Full weight bearing Bathing Instructions: No Tub Bath until see Dr. CERVANTES AFTER DISCHARGE: Regular Wound/Incision Care: Ice to area for comfort, Keep wound elevated, Do not change dressing (Maintain Sima dressing and call if canister is full or suction malfunctions) FOLLOW-UP: Follow up with: Dr. Blair 1 week TREATMENT/EQUIPMENT ORDERS: Adaptive Equipment Issued: None CERTIFICATION STATEMENT: Certification Statement: Certification Statement: Based on the above finding, I certify that this patient is confined to the home and needs intermittent penitentiary care, physical therapy and/or speech therapy, or continues to need occupational therapy.~ This patient is under my care, and I have initiated the establishment of the plan of care.~ This patient will be followed by myself or a community physician who will periodically review the plan of care. Home Meds Reported Medications Celecoxib (CELEBREX) 200 Mg Capsule, 200 MG PO DAILY for pain in knee for 30 Days, #30 CAP 0 Refills 10/03/20 Oxycodone HCl/Acetaminophen (Percocet 5-325 mg Tablet) 1 Each Tablet, 1-2 EACH PO PRN Q4HRS PRN for PAIN, TAB 08/17/20 Acetaminophen (ACETAMINOPHEN) 325 Mg Tablet, 650 MG PO BID for pain, TAB 08/15/20 Furosemide (FUROSEMIDE) 40 Mg Tablet, 40 MG PO PRN DAILY PRN for SWELLING, TAB 08/12/20 Escitalopram Oxalate (ESCITALOPRAM OXALATE) 10 Mg Tablet, 10 MG PO DAILY for ANTI-DEPRESSANT, #30 TAB 0 Refills 08/12/20 Solifenacin Succinate (VESICARE) 10 Mg Tablet, 10 MG PO DAILY for BLADDER CONTROL, TAB 08/12/20 Diclofenac Sodium (VOLTAREN) 100 Gm Gel..gram., 100 GM TP PRN QID PRN for PAIN CONTROL, EACH 08/12/20 Discontinued Reported Medications Ferrous Sulfate (FERROUS SULFATE) 325 Mg Tablet, 1 TAB PO DAILY for anemia, #30 TAB 3 Refills 08/15/20 MONSERRAT BLAIR MD Oct 10, 2020 15:20
[2020-10-10] MEDS ORDERED: ERTAPENEM 1GM IVPB(GENERIC) NS 50 ML IV ONE (15:30)
--- NOTE | 2020-10-10 17:00 | NUR ---
Wound/Ostomy Care Wound Type/Assessment: Follow up for DC placement of prevena dressing to left knee surgical incision. No other wounds noted on head to toe skin assessment. Incision assessed and cleansed with ChloraPrep, picture taken. Incision well approximated with marie in place. No redness, warmth, or swelling. Serosanguinous fluid slowly oozing from distal end of incision. Pt to DC home today Treatment Recommendations/Plan: Prevena wound vac for 7 days Education provided: pt educated on PU prevention and prevena alarms Offloading surface/device:pt independent with mobility Recommended Referrals/Tests: n/a Discharge Recommendations for dressings: leave dressing place until follow up with Dr. Blair within 7 days of DC
--- NOTE | 2020-10-10 17:37 | NUR ---
Discharge Note: SHERIF VORA [address] [place] [address] Discharge instructions and discharge home medications reviewed with Patient and a copy given. All questions have been answered and understanding verbalized. The following instructions and handouts were given: Diet, activity, medication list and follow up instructions provided to patient. Patient set up for home infusions and home health. Discontinued lines and drains: PICC Line intact. Patient discharged to Home w/services with Family Member via [employer]
--- NOTE | 2020-10-10 20:30 | DS ---
DATE OF DISCHARGE: 10/10/2020 PRINCIPAL DIAGNOSES: Left knee infection and presence of total knee arthroplasty. PROCEDURE: Left knee irrigation, debridement and polyethylene exchange with cultures. DISPOSITION: Home with home health. DISCHARGE MEDICATIONS: Include resuming preoperative medications. In addition, tramadol for pain and antibiotics coverage per Infectious Disease. DISCHARGE INSTRUCTIONS: Activity is weightbearing as tolerated, standard total knee protocol. Maintain Prevena wound dressing. Call if saturated or other problems. Follow up with Dr. Blair in 1 week. BRIEF DESCRIPTION OF HOSPITAL COURSE: The patient was admitted to the hospital through a planned admission. She was evaluated in the clinic and was having increased size of a defect with progressive serous type drainage and concern for a sinus tract and infection of the total knee arthroplasty. I went through with her the rationale for undergoing surgical treatment and she underwent an irrigation and debridement of the left knee joint with polyethylene exchange and cultures. Postoperatively, an Infectious Disease consultation was obtained as it appeared that she did have at least some potential communication with a sinus tract and a soft defect in the fascia. Postoperatively, she initially underwent treatment with a MAURICIO dressing, but saturated two separate MAURICIO dressings and I elected then to place a wound VAC on, just due to some swelling and a desire to prevent as much as possible any hematoma or fluid. She had good pain control and was getting up and around well, but had some wound drainage occurring at this time, much decreased after the wound VAC was placed. Cultures did result out from the synovial fluid to Staphylococcus epidermidis, no growth appeared on the other deep tissue cultures, noting that she had been on Bactrim preoperatively. I did discuss with her my concern that I think we should treat this aggressively as there was a very good chance of the path to the joint and one positive culture despite her being on antibiotics and appreciate Infectious Disease input into directing her antibiotic treatment for longer term course of IV antibiotics and after the home health and antibiotic regimen was set up, she was discharged home with home health in stable condition. KAYDEN GOMEZ: Alice TID: [id number]
== END 2020-10-10 17:20 | disposition home health service (06) | DRG 486 ==
LOC: SURG 10:07 → 4 NORTH 15:29 → OBSVTOIN 10-05 08:40
PROVIDERS: ADMIT Orthopaedic Surgery; ATTEND Orthopaedic Surgery
PROC: 0SUW09Z Supplement Left Knee Joint, Tibial Surface with Liner, Open Approach (ICD-10-PCS; 2020-10-04)
PROC: 0SPD09Z Removal of Liner from Left Knee Joint, Open Approach (ICD-10-PCS; principal; 2020-10-04 11:30)
PROC: 02HV33Z Insertion of Infusion Device into Superior Vena Cava, Percutaneous Approach (ICD-10-PCS; 2020-10-07)
PROC: B548ZZA Ultrasonography of Superior Vena Cava, Guidance (ICD-10-PCS; 2020-10-07)
PROC: B5181ZA Fluoroscopy of Superior Vena Cava using Low Osmolar Contrast, Guidance (ICD-10-PCS; 2020-10-07)
DX: T84.54XA Infection and inflammatory reaction due to internal left knee prosthesis, initial encounter (principal); T81.32XA Disruption of internal operation (surgical) wound, not elsewhere classified, initial encounter; M00.062 Staphylococcal arthritis, left knee; Z96.652 Presence of left artificial knee joint; M17.12 Unilateral primary osteoarthritis, left knee; I83.90 Asymptomatic varicose veins of unspecified lower extremity; F41.9 Anxiety disorder, unspecified; F32.9 Major depressive disorder, single episode, unspecified; E66.9 Obesity, unspecified; B95.7 Other staphylococcus as the cause of diseases classified elsewhere; E87.5 Hyperkalemia; Y83.8 Other surgical procedures as the cause of abnormal reaction of the patient, or of later complication, without mention of misadventure at the time of the procedure; Z90.710 Acquired absence of both cervix and uterus; Z90.49 Acquired absence of other specified parts of digestive tract; Y92.89 Other specified places as the place of occurrence of the external cause; Z68.33 Body mass index [BMI] 33.0-33.9, adult
CPT/HCPCS: 36415; 36573; 73560; 77001; 80053; 82550; 85007; 85025; 85651; 86140; 87071; 87075; 87077; 87186; 89050; A4213; A4930; A6223; A6253; A6402; A6450; A6550; C1751; C1776; C1892; G0378; G0379; J0780; J0878; J1100; J1170; J1335; J2250; J2270; J2370; J2405; J2543; J2704; J3010; J3370; J7030; 97110-GP; 97116-GP; 97150-GP; 97530-GO; 97530-GP; 97535-GO